=== PATIENT | female | born 1945 | race Caucasian/White ===

== ENCOUNTER 2016-06-28 09:40 | Emergency (ER) | payer OTHER ==
[2016-06-28 09:55] VITALS: BP 153/86
--- NOTE | 2016-06-28 10:41 | DR.GENAD ---
HPI - PCP Primary Care Physician: NAIN RIVAS - Complaint/Symptoms Chief Complaint Doctors Comments: Patient admits to flu like symptoms for three days; headache, myalgia, stomach pain vomiting and diarrhea. She admits to cough non productive Chief Complaint:: SOB - Source History Provided: Patient - Mode of Arrival Mode of Arrival: Ambulatory - Timing Onset of Chief Complaint: 06/28/16 PMH - PMH Past Medical History: Yes Past Medical History: Hypertension Past Medical History Comment: RA,PULMONARY EMBOLISM, Past Surgical History: Yes Surgical History: Ortho Surgery - Family History History of Family Medical Conditions: Yes Family Medical History: Cancer Family Medical History Comment: CVA - Social History Does patient currently use any type of tobacco product: Yes Have you used tobacco products in the last 12 months: Yes Type of Tobacco Use: Cigarettes How many years tobacco product used: 30 Does any household member use tobacco: Yes Alcohol Use: None Do you use any recreational Drugs:: No Lives With: Spouse Lives Where: Home - infectious screening In the last 2 months have you had wt loss of >10#?: NO Have you had fever, night sweats or hemotysis?: No Have you traveled outside the country in the last 6 months?: No Isolation: Standard ROS - Review of Systems Constitutional: No Symptoms Reported Eyes: No Symptoms Reported ENTM: No Symptoms Reported Respiratoy: No Symptoms Reported Cardiovascular: No Symptoms Reported Gastrointestinal/Abdominal: No Symptoms Reported, Abdominal Pain, Nausea Genitourinary: No Symptoms Reported Neurological: Headache Musculoskeletal: Muscle Pain Integumentary: No Symptoms Reported Hematologic/Lymphatic: No Symptoms Reported Endocrine: No Symptoms Reported Psychiatric: No Symptoms Reported All Other Systems: Reviewed and Negative PE - Vital Signs Vitals: Temperature 98.0 F Pulse Rate 102 Respiratory Rate 18 Blood Pressure 153/86 O2 Sat by Pulse Oximetry 96 - General Limitations: No Limitations General Appearance: Alert, In No Apparent Distress - Head Head Exam: Normal Inspection, Atraumatic - Eyes Eye exam: Normal Appearance, PERRL, EOMI - ENT ENT Exam: Normal Exam External Ear Exam: Normal External Inspection TM/Canal Exam: Bilateral Normal Nose Exam: Normal Nose Exam Mouth Exam: Normal Inspection Throat Exam: Normal Inspection - Neck Neck Exam: Normal Inspection - Chest Chest Inspection: Normal Inspection - Respiratory Respiratory Exam: Normal Lung Sounds Bilat Respiratory Exam: Bilateral Clear to Auscultation - Cardiovascular Cardiovascular Exam: Regular Rate, Normal Rhythm - Abdominal Exam Abdominal Exam: Normal Inspection Abdominal Tenderness: negative: RUQ, RLQ, LUQ, LLQ, Epigastrium, Suprapubic, Diffuse, Mild, Moderate, Severe, Other - Extremities Extremities Exam: Normal Inspection, Full ROM - Back Back Exam: Normal Inspection - Neurologic Neurological Exam: Alert, Oriented X3, CN II-XII Intact - Psychiatric Psychiatric Exam: Normal Affect - Skin Skin Exam: Warm, Dry, Intact Course - Reevaluation 1st: Improved ROR - Labs Reviewed Result Diagrams: 06/28/16 11:02 06/28/16 11:02 Laboratory: WBC 7.7 X10^3/uL (3.6-10.0) 06/28/16 11:02 RBC 3.89 X10^6/uL (3.5-5.4) 06/28/16 11:02 Hgb 12.9 g/dL (12.0-16.0) 06/28/16 11:02 Hct 38.1 % (36.0-47.0) 06/28/16 11:02 MCV 98.0 fL (80.0-100.0) 06/28/16 11:02 MCH 33.1 pg (27.0-34.0) 06/28/16 11:02 MCHC 33.8 g/dL (33.0-35.0) 06/28/16 11:02 RDW 17.7 % (11.6-16.5) H 06/28/16 11:02 Plt Count 140 X10^3/uL (150.0-450.0) L 06/28/16 11:02 MPV 9.6 fL (7.4-11.0) 06/28/16 11:02 Neut % 82.4 % (42.0-75.0) H 06/28/16 11:02 Lymph % 11.7 % (21.0-51.0) L 06/28/16 11:02 [place] % 4.6 % (0.0-13.0) 06/28/16 11:02 Eos % 0.1 % (0.9-2.9) L 06/28/16 11:02 Baso % 1.2 % (0.2-1.0) H 06/28/16 11:02 Neut # 6.3 x10^3/uL (2.2-4.8) H 06/28/16 11:02 Lymph # 0.9 X10^3/uL (1.3-2.9) L 06/28/16 11:02 [place] # 0.4 x10^3/uL (0.3-0.8) 06/28/16 11:02 Eos # 0.0 x10^3/uL (0.0-0.2) 06/28/16 11:02 Baso # 0.1 X10^3/uL (0.0-0.1) 06/28/16 11:02 Absolute Nucleated RBC 0.1 /100WBC 06/28/16 11:02 Sodium 139 mmol/L (136-145) 06/28/16 11:02 Corrected Sodium TNP 06/28/16 11:02 Potassium 3.2 mmol/L (3.5-5.1) L 06/28/16 11:02 Chloride 104 mmol/L (98-107) 06/28/16 11:02 Carbon Dioxide 25.2 mmol/L (21-32) 06/28/16 11:02 BUN 11 mg/dL (7-18) 06/28/16 11:02 Creatinine 0.85 mg/dL (0.55-1.02) 06/28/16 11:02 Est GFR (MDRD) Af Amer > 60 (>60) 06/28/16 11:02 Est GFR (MDRD) Non-Af > 60 (>60) 06/28/16 11:02 Glucose 106 mg/dL (65-99) H 06/28/16 11:02 Calcium 8.5 mg/dL (8.5-10.1) 06/28/16 11:02 Corrected Calcium 9.5 mg/dL (8.5-10.1) 06/28/16 11:02 Total Bilirubin 0.90 mg/dL (0.2-1.0) 06/28/16 11:02 AST 20 Units/L (15-37) 06/28/16 11:02 ALT 19 Units/L (12-78) 06/28/16 11:02 Alkaline Phosphatase 87 Units/L (46-116) 06/28/16 11:02 Total Protein 6.6 g/dL (6.4-8.2) 06/28/16 11:02 Albumin 2.7 g/dL (3.4-5.0) L 06/28/16 11:02 Globulin 3.9 g/dL (2.5-4.5) 06/28/16 11:02 Albumin/Globulin Ratio 0.7 Ratio (1.1-2.1) L 06/28/16 11:02 Influenza A (H1N1) PCR Not detected (NOT DETECT) 06/28/16 10:41 Influenza Type A (PCR) Negative (NEGATIVE) 06/28/16 10:41 Influenza Type B (PCR) Negative (NEGATIVE) 06/28/16 10:41 - XRAY XRAY Interpreted by: Radiologist (Chest: negative) - Diagnosis Discharge Problem: Influenza-like symptoms - Discharge Plan Condition: Stable - Follow ups/Referrals Follow ups/Referrals: Nain Rivas [Primary Care Provider] - 3 days - Instructions
[2016-06-28] MEDS ORDERED: NS 1000 ML 1,000 ML ONE (10:42)
[2016-06-28] MEDS ORDERED: NS 1000 ML 1,000 ML IV SCH (11:00)
[2016-06-28] MEDS ORDERED: DUONEB 0.5 MG/3 MG NEB ONE (11:03)
[2016-06-28] MEDS ORDERED: DUONEB 0.5 MG/3 MG ONE (11:05)
[2016-06-28 11:18] LABS: BASOPHILS # (AUTO) 0.1 X10^3/uL (0.0-0.1); BASOPHILS % (AUTO) 1.2 % (0.2-1.0); EOSINOPHILS % (AUTO) 0.1 % (0.9-2.9); HEMATOCRIT 38.1 % (36.0-47.0); HEMOGLOBIN 12.9 g/dL (12.0-16.0); LYMPHOCYTES # (AUTO) 0.9 X10^3/uL (1.3-2.9); LYMPHOCYTES % (AUTO) 11.7 % (21.0-51.0); MEAN CORPUSCULAR HEMOGLOBIN 33.1 pg (27.0-34.0); MEAN CORPUSCULAR HGB CONC 33.8 g/dL (33.0-35.0); MEAN PLATELET VOLUME 9.6 fL (7.4-11.0); MONOCYTES # (AUTO) 0.4 x10^3/uL (0.3-0.8); MONOCYTES % (AUTO) 4.6 % (0.0-13.0); NEUTROPHILS # (AUTO) 6.3 x10^3/uL (2.2-4.8); NEUTROPHILS % (AUTO) 82.4 % (42.0-75.0); PLATELET COUNT 140 X10^3/uL (150.0-450.0); RED BLOOD COUNT 3.89 X10^6/uL (3.5-5.4); RED CELL DISTRIBUTION WIDTH 17.7 % (11.6-16.5); WHITE BLOOD COUNT 7.7 X10^3/uL (3.6-10.0)
[2016-06-28 11:29] LABS: ALANINE AMINOTRANSFERASE 19 Units/L (12-78); ALBUMIN 2.7 g/dL (3.4-5.0); ALKALINE PHOSPHATASE 87 Units/L (46-116); ASPARTATE AMINO TRANSFERASE 20 Units/L (15-37); BLOOD UREA NITROGEN 11 mg/dL (7-18); CALCIUM 8.5 mg/dL (8.5-10.1); CARBON DIOXIDE 25.2 mmol/L (21-32); CHLORIDE 104 mmol/L (98-107); COR CA(FOR HYPOALB) 9.5 mg/dL (8.5-10.1); CREATININE 0.85 mg/dL (0.55-1.02); GLUCOSE 106 mg/dL (65-99); SODIUM 139 mmol/L (136-145); TOTAL PROTEIN 6.6 g/dL (6.4-8.2); eGFR BLACK RACES > 60 (>60); eGFR NON BLACK RACES > 60 (>60)
--- NOTE | 2016-06-28 11:58 | RAD ---
HISTORY: Cough, shortness of breath Study: Chest one view Comparison: None Findings: The trachea is midline. The cardiac silhouette is unremarkable. The lungs are clear without focal infiltrate or effusion. The bony thorax is unremarkable. IMPRESSION: 1. No acute cardiopulmonary disease. Reported By:
== END 2016-06-28 12:45 | disposition home or self-care (01) ==
LOC: ER 10:15
DX: J11.1 Influenza due to unidentified influenza virus with other respiratory manifestations (principal)
CPT/HCPCS: 36415; 71010; 80053; 85025; 87502; 87503; 94640; 96365; 99283; A4222; J7620

== ENCOUNTER 2016-07-07 14:56 | Emergency (ER) | payer OTHER ==
[2016-07-07 15:02] VITALS: BP 144/74; BMI 19.9
--- NOTE | 2016-07-07 15:31 | DR.GENAD ---
HPI - PCP Primary Care Physician: DR. RIVAS - Complaint/Symptoms Chief Complaint:: RIGHT SIDE OF HER THROAT HURTS. SHE FELL YESTERDAY AND SHE IS HAVING RIGHT SIDED BACK/SIDE PAIN. SHE HAS A SKIN TEAR TO HER RIGHT UPPER ARM AND LEFT LOWER ARM. - Source History Provided: Patient - Mode of Arrival Mode of Arrival: Ambulatory - Timing Onset of Chief Complaint: 07/06/16 PMH - PMH Past Medical History: Yes Past Medical History: Hypertension Past Surgical History: Yes Surgical History: Ortho Surgery - Family History History of Family Medical Conditions: Yes Family Medical History: Cancer - Social History Does patient currently use any type of tobacco product: Yes Have you used tobacco products in the last 12 months: Yes Type of Tobacco Use: Cigarettes Does any household member use tobacco: No Alcohol Use: None Do you use any recreational Drugs:: No Lives With: Family Lives Where: Home - infectious screening In the last 2 months have you had wt loss of >10#?: NO Have you had fever, night sweats or hemotysis?: No Have you traveled outside the country in the last 6 months?: No Isolation: Standard ROS - Review of Systems Constitutional: No Symptoms Reported Eyes: No Symptoms Reported ENTM: No Symptoms Reported Respiratoy: No Symptoms Reported Cardiovascular: No Symptoms Reported Gastrointestinal/Abdominal: No Symptoms Reported Genitourinary: No Symptoms Reported Neurological: No Symptoms Reported Musculoskeletal: Rib(s) (injury) Integumentary: No Symptoms Reported Hematologic/Lymphatic: No Symptoms Reported Endocrine: No Symptoms Reported Psychiatric: No Symptoms Reported All Other Systems: Reviewed and Negative PE - Vital Signs Vitals: Temperature 97.9 F Pulse Rate 77 Respiratory Rate 20 Blood Pressure 144/74 O2 Sat by Pulse Oximetry 100 - General Limitations: No Limitations General Appearance: Alert - Head Head Exam: Normal Inspection, Atraumatic - Eyes Eye exam: Normal Appearance, PERRL, EOMI - ENT ENT Exam: Normal Exam External Ear Exam: Normal External Inspection TM/Canal Exam: Bilateral Normal Nose Exam: Normal Nose Exam Mouth Exam: Normal Inspection Throat Exam: Normal Inspection - Neck Neck Exam: Normal Inspection - Chest Chest Inspection: Normal Inspection - Respiratory Respiratory Exam: Normal Lung Sounds Bilat Respiratory Exam: Bilateral Clear to Auscultation - Cardiovascular Cardiovascular Exam: Regular Rate - Abdominal Exam Abdominal Exam: Normal Inspection Abdominal Tenderness: negative: RUQ, RLQ, LUQ, LLQ, Epigastrium, Suprapubic, Diffuse, Mild, Moderate, Severe, Other - Extremities Extremities Exam: Normal Inspection, Full ROM, Other (Chest wall w/o fracture,) - Back Back Exam: Normal Inspection - Neurologic Neurological Exam: Alert, Oriented X3, CN II-XII Intact - Psychiatric Psychiatric Exam: Normal Affect - Skin Skin Exam: Warm, Dry, Intact ROR - Labs Reviewed Result Diagrams: 07/07/16 15:45 Laboratory: WBC 8.2 X10^3/uL (3.6-10.0) 07/07/16 15:45 RBC 3.69 X10^6/uL (3.5-5.4) 07/07/16 15:45 Hgb 12.4 g/dL (12.0-16.0) 07/07/16 15:45 Hct 36.3 % (36.0-47.0) 07/07/16 15:45 MCV 98.2 fL (80.0-100.0) 07/07/16 15:45 MCH 33.5 pg (27.0-34.0) 07/07/16 15:45 MCHC 34.1 g/dL (33.0-35.0) 07/07/16 15:45 RDW 17.1 % (11.6-16.5) H 07/07/16 15:45 Plt Count 243 X10^3/uL (150.0-450.0) 07/07/16 15:45 MPV 9.1 fL (7.4-11.0) 07/07/16 15:45 Neut % 74.7 % (42.0-75.0) 07/07/16 15:45 Lymph % 16.1 % (21.0-51.0) L 07/07/16 15:45 [place] % 7.7 % (0.0-13.0) 07/07/16 15:45 Eos % 0.2 % (0.9-2.9) L 07/07/16 15:45 Baso % 1.3 % (0.2-1.0) H 07/07/16 15:45 Neut # 6.1 x10^3/uL (2.2-4.8) H 07/07/16 15:45 Lymph # 1.3 X10^3/uL (1.3-2.9) 07/07/16 15:45 [place] # 0.6 x10^3/uL (0.3-0.8) 07/07/16 15:45 Eos # 0.0 x10^3/uL (0.0-0.2) 07/07/16 15:45 Baso # 0.1 X10^3/uL (0.0-0.1) 07/07/16 15:45 Absolute Nucleated RBC 0.0 /100WBC 07/07/16 15:45 Streptococcus Screen Negative (NEGATIVE) 07/07/16 16:21 - XRAY XRAY Interpreted by: Radiologist (No rib fractures) - Diagnosis Discharge Problem: Contusion of right chest wall Qualifiers: Encounter type: initial encounter Qualified Code(s): S20.211A - Contusion of right front wall of thorax, initial encounter - Discharge Plan Condition: Stable - Follow ups/Referrals Follow ups/Referrals: Nain Rivas [Primary Care Provider] - 3 days - Instructions
[2016-07-07] MEDS ORDERED: DEMEROL INJ IM ONE (15:33)
[2016-07-07] MEDS ORDERED: DEMEROL INJ ONE (15:36)
[2016-07-07 15:54] LABS: BASOPHILS # (AUTO) 0.1 X10^3/uL (0.0-0.1); BASOPHILS % (AUTO) 1.3 % (0.2-1.0); EOSINOPHILS % (AUTO) 0.2 % (0.9-2.9); HEMATOCRIT 36.3 % (36.0-47.0); HEMOGLOBIN 12.4 g/dL (12.0-16.0); LYMPHOCYTES # (AUTO) 1.3 X10^3/uL (1.3-2.9); LYMPHOCYTES % (AUTO) 16.1 % (21.0-51.0); MEAN CORPUSCULAR HEMOGLOBIN 33.5 pg (27.0-34.0); MEAN CORPUSCULAR HGB CONC 34.1 g/dL (33.0-35.0); MEAN CORPUSCULAR VOLUME 98.2 fL (80.0-100.0); MEAN PLATELET VOLUME 9.1 fL (7.4-11.0); MONOCYTES # (AUTO) 0.6 x10^3/uL (0.3-0.8); MONOCYTES % (AUTO) 7.7 % (0.0-13.0); NEUTROPHILS # (AUTO) 6.1 x10^3/uL (2.2-4.8); NEUTROPHILS % (AUTO) 74.7 % (42.0-75.0); PLATELET COUNT 243 X10^3/uL (150.0-450.0); RED BLOOD COUNT 3.69 X10^6/uL (3.5-5.4); RED CELL DISTRIBUTION WIDTH 17.1 % (11.6-16.5); WHITE BLOOD COUNT 8.2 X10^3/uL (3.6-10.0)
--- NOTE | 2016-07-07 16:39 | RAD ---
Right-sided rib series with single view chest Indication: Right-sided chest pain after recent fall. Comparison: Chest x-ray 06/28/2016 Findings: The cardiac and mediastinal contours are normal. The lungs are clear, without focal infilt rates, large effusion, or pneumothorax. No cortical disruption or malalignment of the ribs identifie d. Impression: No acute chest process or displaced rib fracture identified. Reported By:
== END 2016-07-07 17:06 | disposition home or self-care (01) ==
LOC: ER 15:04
DX: S20.211A Contusion of right front wall of thorax, initial encounter (principal); W19.XXXA Unspecified fall, initial encounter; Y92.9 Unspecified place or not applicable
CPT/HCPCS: 36415; 71111; 85025; 87070; 87880; 96372; 99282; 99283; J2175

== ENCOUNTER → 2016-07-23 | Outpatient (CLI) | payer OTHER ==
[2016-07-07 15:02] VITALS: BP 144/74
--- NOTE | 2016-07-23 15:09 | MRI ---
HISTORY: Low back pain, history of fall Study: MRI lumbar spine without contrast Comparison: None Technique: Multiplanar multi-sequence MRI of the lumbar spine was obtained. Sagittal T1, sagittal T 2, and stir weighted images, axial T1, and axial T2 images were obtained. Findings: The patient is status post L5-S1 posterior fusion with hardware and a disc spacer present. The lumba r spine demonstrates normal alignment with the expected signal characteristics of the bone marrow. The conus of the cord terminates normally. T12 -- L1: No evidence for compressive disc disease. The neural foramina are patent. The joints are normal. L1 -- L2: No evidence for compressive disc disease. The neural foramina are patent. The joints are n ormal. L2 -- L3: No evidence for compressive disc disease. The neural foramina are patent. The joints are n ormal. L3 -- L4: No evidence for compressive disc disease. The neural foramina are patent. The joints are n ormal. L4 -- L5: No evidence for compressive disc disease. The neural foramina are patent. The joints are n ormal. L5 -- S1: Status post fusion with hardware present. There is a disc spacer present. The neural mellissa jayjay are patent. The joints are normal. Incidental note is made of arachnoid cysts at the S2 and S3 level. IMPRESSION: Postsurgical changes as above No evidence for compressive disc disease or compressive spondylitic change at any level. Reported By:
--- NOTE | 2016-07-23 15:14 | MRI ---
HISTORY: Thoracic back pain, history of fall Study: MRI thoracic spine without contrast Comparison: None Technique: Multi planar multi sequence non contrast imaging Findings: The prevertebral soft tissues are normal. The vertebral body alignment and bone signal is normal. No compression fractures are identified. The intervertebral discs are well hydrated and normal. The ara ints are normal. The thoracic spinal cord is normal in size and configuration and without foci of ab normal signal or syrinx. IMPRESSION: No significant abnormality identified Reported By:
== END ==
LOC: RAD 09:37
PROVIDERS: ATTEND Internal Medicine
DX: M54.5 Low back pain (principal); M54.6 Pain in thoracic spine; Z98.1 Arthrodesis status
CPT/HCPCS: 72146; 72148

== ENCOUNTER 2016-10-01 16:23 | Emergency (ER) | payer OTHER ==
[2016-10-01 16:27] VITALS: BMI 19.3
[2016-10-01] MEDS ORDERED: TORADOL 30 MG VIAL IM ONE (16:40)
--- NOTE | 2016-10-01 16:41 | DR.GENAD ---
HPI - PCP Primary Care Physician: mahamed - Complaint/Symptoms Chief Complaint Doctors Comments: History as stated. Pain 8/10, sharp, movement makes worse Chief Complaint:: patient was reaching up today when she heard a loud pop in her left should. pt has limited rom - Source History Provided: Patient - Mode of Arrival Mode of Arrival: Ambulatory - Timing Onset of Chief Complaint: 10/01/16 PMH - PMH Past Medical History: Yes Past Medical History: Hypertension Past Surgical History: Yes Surgical History: Ortho Surgery - Family History History of Family Medical Conditions: Yes Family Medical History: Cancer - Social History Does patient currently use any type of tobacco product: Yes Have you used tobacco products in the last 12 months: Yes Type of Tobacco Use: Cigarettes How many years tobacco product used: 30 Does any household member use tobacco: No Alcohol Use: None Do you use any recreational Drugs:: No Lives With: Family Lives Where: Home - infectious screening In the last 2 months have you had wt loss of >10#?: NO Have you had fever, night sweats or hemotysis?: No Have you traveled outside the country in the last 6 months?: No Isolation: Standard ROS - Review of Systems Eyes: No Symptoms Reported ENTM: No Symptoms Reported Respiratoy: No Symptoms Reported Cardiovascular: No Symptoms Reported Gastrointestinal/Abdominal: No Symptoms Reported Genitourinary: No Symptoms Reported Neurological: No Symptoms Reported Musculoskeletal: Shoulder (left) Integumentary: No Symptoms Reported Hematologic/Lymphatic: No Symptoms Reported Endocrine: No Symptoms Reported Psychiatric: No Symptoms Reported All Other Systems: Reviewed and Negative PE - Vital Signs Vitals: Temperature 98.6 F Pulse Rate [Right Brachial] 81 Pulse Rate 85 Respiratory Rate 16 Blood Pressure [Right Arm] 177/83 Blood Pressure 193/88 O2 Sat by Pulse Oximetry 99 - General Limitations: No Limitations General Appearance: Alert, In No Apparent Distress - Head Head Exam: Normal Inspection, Atraumatic - Eyes Eye exam: Normal Appearance, PERRL, EOMI - ENT ENT Exam: Normal Exam External Ear Exam: Normal External Inspection TM/Canal Exam: Bilateral Normal Nose Exam: Normal Nose Exam Mouth Exam: Normal Inspection Throat Exam: Normal Inspection - Neck Neck Exam: Normal Inspection - Chest Chest Inspection: Normal Inspection - Respiratory Respiratory Exam: Normal Lung Sounds Bilat Respiratory Exam: Bilateral Clear to Auscultation - Cardiovascular Cardiovascular Exam: Regular Rate, Normal Rhythm - Abdominal Exam Abdominal Exam: Normal Inspection Abdominal Tenderness: negative: RUQ, RLQ, LUQ, LLQ, Epigastrium, Suprapubic, Diffuse, Mild, Moderate, Severe, Other - Extremities Extremities Exam: Normal Inspection, Full ROM - Back Back Exam: Normal Inspection, Full ROM - Neurologic Neurological Exam: Alert, Oriented X3, CN II-XII Intact - Psychiatric Psychiatric Exam: Normal Affect, Normal Mood - Skin Skin Exam: Warm, Dry, Intact Course - Reevaluation 1st: Improved ROR - XRAY XRAY Interpreted by: Radiologist (There are mild osteophytes abut the glenohumeral joint inferiorly. No fracture is demonstrated. The distal clavicle and AC joint are unremarkable. Impression: Mild glenohumeral osteoarthritis) - Diagnosis Discharge Problem: Osteoarthritis of left glenohumeral joint - Discharge Plan Condition: Stable - Follow ups/Referrals Follow ups/Referrals: Nain Love [Primary Care Provider] - 3 days - Instructions
[2016-10-01] MEDS ORDERED: TORADOL 30 MG VIAL ONE (16:43)
[2016-10-01] MEDS ORDERED: CATAPRES TAB 0.1 MG ONE (16:48)
[2016-10-01] MEDS ORDERED: CATAPRES TAB 0.1 MG PO ONE (16:48)
[2016-10-01 17:03] VITALS: BP 177/83
--- NOTE | 2016-10-01 17:22 | RAD ---
History: Left shoulder pain Study: Three views of the left shoulder Comparison: None Findings: There are mild osteophytes about the glenohumeral joint inferiorly. No fracture is demonst rated. The distal clavicle and AC joint are unremarkable. Impression: Mild glenohumeral osteoarthritis Reported By:
== END 2016-10-01 17:33 | disposition home or self-care (01) ==
LOC: ER 16:31
DX: M19.012 Primary osteoarthritis, left shoulder (principal)
CPT/HCPCS: 73030; 96372; 99282; J1885

== ENCOUNTER 2016-12-31 19:55 | Emergency (ER) | payer OTHER ==
[2016-12-31] MEDS ORDERED: DEMEROL INJ ONE ×2 (20:36→23:39)
[2016-12-31] MEDS ORDERED: DEMEROL INJ IVP ONE ×2 (20:38→23:32)
[2016-12-31] MEDS ORDERED: TORADOL 30 MG VIAL IVP ONE (22:00)
[2016-12-31] MEDS ORDERED: NS IRRIGATION 1000 ML 1,000 ML ONE (22:00)
[2016-12-31] MEDS ORDERED: TORADOL 30 MG VIAL ONE (22:02)
[2016-12-31] MEDS ORDERED: XYLOCAINE 1 % (PLAIN) ONE (22:08)
--- NOTE | 2016-12-31 23:10 | DR.GENAD ---
HPI - PCP Primary Care Physician: mahamed - Complaint/Symptoms Chief Complaint Doctors Comments: laceration to rt. leg Chief Complaint:: c/o assisting her and sustained an abrasion to right calf area. Takes warfarin at home. - Nurses notes reviewed Nurses Notes Review: Yes - Source History Provided: Patient - Mode of Arrival Mode of Arrival: Wheelchair - Timing Onset of Chief Complaint: 12/31/16 Came on: Suddenly - Modifying Factors Worsens:: nothing Improves:: nothing - Associated Signs and Symptoms Associated Signs and Symptoms: none PMH - PMH Past Medical History: Yes Past Medical History: Hypertension Past Medical History Comment: DVT, PE Past Surgical History: Yes Surgical History: Ortho Surgery Past Surgical History Comment: IVC filter - Family History History of Family Medical Conditions: Yes Family Medical History: Cancer - Social History Type of Tobacco Use: Cigarettes Alcohol Use: None Do you use any recreational Drugs:: No Lives With: Family Lives Where: Home - infectious screening In the last 2 months have you had wt loss of >10#?: NO Have you had fever, night sweats or hemotysis?: No Have you traveled outside the country in the last 6 months?: No Isolation: Standard ROS - Review of Systems Constitutional: No Symptoms Reported, See HPI Eyes: No Symptoms Reported ENTM: No Symptoms Reported Respiratoy: No Symptoms Reported Cardiovascular: No Symptoms Reported Gastrointestinal/Abdominal: No Symptoms Reported Genitourinary: No Symptoms Reported Neurological: No Symptoms Reported Musculoskeletal: No Symptoms Reported Integumentary: See HPI, Other (laceration to right leg) Hematologic/Lymphatic: No Symptoms Reported Endocrine: No Symptoms Reported Psychiatric: No Symptoms Reported All Other Systems: Reviewed and Negative PE - Vital Signs Vitals: Temperature 97.6 F Pulse Rate 97 Respiratory Rate 24 Blood Pressure [] 177/83 Blood Pressure 192/98 O2 Sat by Pulse Oximetry 118 - General Limitations: No Limitations General Appearance: Alert, In No Apparent Distress - Head Head Exam: Normal Inspection - Eyes Eye exam: Normal Appearance, PERRL, EOMI - ENT ENT Exam: Normal Exam External Ear Exam: Normal External Inspection TM/Canal Exam: Bilateral Normal Nose Exam: Normal Nose Exam Mouth Exam: Normal Inspection Throat Exam: Normal Inspection - Neck Neck Exam: Normal Inspection - Chest Chest Inspection: Normal Inspection - Respiratory Respiratory Exam: Normal Lung Sounds Bilat Respiratory Exam: Bilateral Clear to Auscultation - Cardiovascular Cardiovascular Exam: Regular Rate, Normal Rhythm - Abdominal Exam Abdominal Exam: Normal Inspection, Normal Bowel Sounds, Soft - Extremities Extremities Exam: Normal Inspection - Neurologic Neurological Exam: Alert, Oriented X3 - Psychiatric Psychiatric Exam: Normal Affect, Normal Mood - Skin Skin Exam: Other (bruises and ecchymoses to distal legs. A large U shaped laceration to mid rt/ leg distally on posterior aspect. The laceration's redundant skin is folded on itself. ) Course - Reevaluation 1st: Improved - Education/Counseling Education/Counseling: Patient, Family Educated On: Treatment, Diagnosis ROR - Labs Reviewed Laboratory: INR Target Range - 12/31/16 20:44 INR 2.84 (0.8-1.3) H 12/31/16 20:44 Procedures - Laceration/Wound Repair Right Lower Medial Leg Wound's Depth, Shape: Superficial, Flap Wound Explored: no foreign body removed Irrigated w/ Saline (ccs): 15 Betadine Prep?: Yes Anesthesia: 1% Lidocaine Volume Anesthetic (ccs): 15 Wound Repaired With: sutures Suture Size/Type: 3:0 Number of Sutures: 14 Layer Closure?: No Sterile Dressing Applied?: Yes Splint Applied?: No - Diagnosis Discharge Problem: Laceration, Anticoagulation adequate with anticoagulant therapy - Discharge Plan Disposition: 01 HOME, SELF-CARE Condition: Stable - Follow ups/Referrals Follow ups/Referrals: Nain Love [Primary Care Provider] - 3 days - Instructions Instructions: Skin Tear Care, [id number]
[2016-12-31] MEDS ORDERED: BACITRACIN ZINC ONE ×2 (23:16→23:20)
[2016-12-31] MEDS ORDERED: ROCEPHIN VIAL 1 GM 1 GM in NS 50 ML IV + SPIKE MINIBAG* 50 ML IV ONE (23:34)
[2016-12-31] MEDS ORDERED: ROCEPHIN 1 GM IV PREMIX 1 GM/50 ML IV.SOLN. IV ONE (23:39)
[2017-01-01 01:00] VITALS: BP 178/87
== END 2017-01-01 00:37 | disposition home or self-care (01) ==
LOC: ER 19:55
PROC: 0YQH0ZZ Repair Right Lower Leg, Open Approach (ICD-10-PCS; principal; 2016-12-31)
DX: S81.811A Laceration without foreign body, right lower leg, initial encounter (principal); Z79.01 Long term (current) use of anticoagulants; W45.8XXA Other foreign body or object entering through skin, initial encounter; Y92.9 Unspecified place or not applicable
CPT/HCPCS: 12001; 36415; 85610; 96365; 96374; 96375; 99283; A4222; J0696; J1885; J2001; J2175

== ENCOUNTER 2017-01-01 16:11 | Emergency (ER) | payer OTHER ==
[2017-01-01 16:25] VITALS: BP 158/83
[2017-01-01] MEDS ORDERED: XYLOCAINE 2 % (PLAIN) ONE (17:09)
[2017-01-01] MEDS ORDERED: ZOFRAN INJ 4 MG VIAL ONE (17:28)
[2017-01-01] MEDS ORDERED: DEMEROL INJ ONE (17:29)
[2017-01-01] MEDS ORDERED: DEMEROL INJ IVP ONE (17:34)
[2017-01-01] MEDS ORDERED: ZOFRAN INJ 4 MG VIAL IVP ONE (17:34)
--- NOTE | 2017-01-01 17:34 | DR.GENAD ---
HPI - PCP Primary Care Physician: Ivan - HPI Comment HPI Comment: HISTORY BELOW. - Complaint/Symptoms Chief Complaint Doctors Comments: BLEEDING FROM WOUND ON RLF. PATIENT ON COUMADIN. SUSTAIN CUT LAST NIGHT.SUTURED BUT SKIN TEAR COULD BE SUTURED.WOUND BLEEDING. Chief Complaint:: "I came up here last night because I hurt my leg. He stitched it up and everything but today I have gotten a big hematoma on it. A home health nurse came by and told me that I needed to get it looked at." - Nurses notes reviewed Nurses Notes Review: Yes - Source History Provided: Patient - Mode of Arrival Mode of Arrival: Wheelchair - Timing Onset of Chief Complaint: 12/31/16 Came on: Suddenly - Duration Duration: Constant Duration: Days - Severity Severity: Moderate PMH - PMH Past Medical History: Yes Past Medical History: Hypertension Past Surgical History: Yes Surgical History: Cholecystectomy, Hysterectomy, Ortho Surgery, Tonsillectomy Past Surgical History Comment: Neck, back - Family History History of Family Medical Conditions: Yes Family Medical History: Cancer - Social History Does patient currently use any type of tobacco product: Yes Have you used tobacco products in the last 12 months: Yes Type of Tobacco Use: Cigarettes Does any household member use tobacco: Yes Alcohol Use: None Do you use any recreational Drugs:: No Lives With: Family Lives Where: Home - infectious screening In the last 2 months have you had wt loss of >10#?: NO Have you had fever, night sweats or hemotysis?: No Have you traveled outside the country in the last 6 months?: No Isolation: Standard ROS - Review of Systems Constitutional: No Symptoms Reported Eyes: No Symptoms Reported ENTM: No Symptoms Reported Respiratoy: No Symptoms Reported Cardiovascular: No Symptoms Reported Gastrointestinal/Abdominal: No Symptoms Reported Genitourinary: No Symptoms Reported Neurological: No Symptoms Reported Musculoskeletal: Right, Leg Integumentary: Wound (WOUND RLE BLEEDING EVEN AT SUTURE SITE.) Hematologic/Lymphatic: Easy Bleeding, Easy Bruising Endocrine: No Symptoms Reported All Other Systems: Reviewed and Negative PE - Vital Signs Vitals: Temperature 98.6 F Pulse Rate 101 Respiratory Rate 18 Blood Pressure [Right Arm] 178/87 Blood Pressure 158/83 O2 Sat by Pulse Oximetry 96 - General Limitations: No Limitations General Appearance: In No Apparent Distress - Head Head Exam: Normal Inspection - ENT ENT Exam: Normal External Ear Exam External Ear Exam: Normal External Inspection TM/Canal Exam: Bilateral Normal Nose Exam: Normal Nose Exam Mouth Exam: Normal Inspection Throat Exam: Normal Inspection - Neck Neck Exam: Normal Inspection - Chest Chest Inspection: Symmetric Chest Wall Rise - Respiratory Respiratory Exam: Normal Lung Sounds Bilat Respiratory Exam: Bilateral Rhonchi, Lower Rhonchi - Cardiovascular Cardiovascular Exam: Irregular Rhythm - Abdominal Exam Abdominal Exam: Normal Bowel Sounds, Soft. negative: Tenderness - Extremities Extremities Exam: Tenderness (RT LEG WOUND, SKIN TEARS BLEEDING.) - Back Back Exam: Normal Inspection - Neurologic Neurological Exam: Alert, Oriented X3 - Psychiatric Psychiatric Exam: Normal Affect, Normal Mood - Skin Skin Exam: Erythema (WOUND BLEEDING ON RIGHT LEG) [facility] - Additional Information Additional Information Obtained From: Family - Differential Diagnosis Differential Diagnosis: HEMATOMA BLEEDING RT LEG. Course - Treatment Treatment: SEE ORDERS. - Education/Counseling Education/Counseling: Patient, Education Educated On: Treatment, Diagnosis, Needs for Follow Up ROR - Labs Reviewed Laboratory Results Reviewed?: Yes Result Diagrams: 01/01/17 17:20 01/01/17 17:20 Laboratory: WBC 10.1 X10^3/uL (3.6-10.0) H 01/01/17 17:20 RBC 4.02 X10^6/uL (3.5-5.4) 01/01/17 17:20 Hgb 13.6 g/dL (12.0-16.0) 01/01/17 17:20 Hct 40.1 % (36.0-47.0) 01/01/17 17:20 MCV 99.7 fL (80.0-100.0) 01/01/17 17:20 MCH 33.8 pg (27.0-34.0) 01/01/17 17:20 MCHC 33.9 g/dL (33.0-35.0) 01/01/17 17:20 RDW 15.3 % (11.6-16.5) 01/01/17 17:20 Plt Count 210 X10^3/uL (150.0-450.0) 01/01/17 17:20 MPV 9.5 fL (7.4-11.0) 01/01/17 17:20 Neut % 76.1 % (42.0-75.0) H 01/01/17 17:20 Lymph % 14.8 % (21.0-51.0) L 01/01/17 17:20 [place] % 6.7 % (0.0-13.0) 01/01/17 17:20 Eos % 0.5 % (0.9-2.9) L 01/01/17 17:20 Baso % 1.9 % (0.2-1.0) H 01/01/17 17:20 Neut # 7.7 x10^3/uL (2.2-4.8) H 01/01/17 17:20 Lymph # 1.5 X10^3/uL (1.3-2.9) 01/01/17 17:20 [place] # 0.7 x10^3/uL (0.3-0.8) 01/01/17 17:20 Eos # 0.1 x10^3/uL (0.0-0.2) 01/01/17 17:20 Baso # 0.2 X10^3/uL (0.0-0.1) H 01/01/17 17:20 Absolute Nucleated RBC 0.1 /100WBC 01/01/17 17:20 INR Target Range - 01/01/17 17:20 INR 3.17 (0.8-1.3) H 01/01/17 17:20 PTT 34.5 SECONDS (22.9-36.5) 01/01/17 17:20 PTT Comment - 01/01/17 17:20 Sodium 144 mmol/L (136-145) 01/01/17 17:20 Corrected Sodium 145 mmol/L (136-145) 01/01/17 17:20 Potassium 4.0 mmol/L (3.5-5.1) 01/01/17 17:20 Chloride 106 mmol/L (98-107) 01/01/17 17:20 Carbon Dioxide 30.9 mmol/L (21-32) 01/01/17 17:20 BUN 18 mg/dL (7-18) 01/01/17 17:20 Creatinine 1.15 mg/dL (0.55-1.02) H 01/01/17 17:20 Est GFR (MDRD) Af Amer > 60 (>60) 01/01/17 17:20 Est GFR (MDRD) Non-Af 50 (>60) L 01/01/17 17:20 Glucose 140 mg/dL (65-99) H 01/01/17 17:20 Calcium 9.3 mg/dL (8.5-10.1) 01/01/17 17:20 Corrected Calcium 10.1 mg/dL (8.5-10.1) 01/01/17 17:20 Total Bilirubin 0.60 mg/dL (0.2-1.0) 01/01/17 17:20 AST 14 Units/L (15-37) L 01/01/17 17:20 ALT 12 Units/L (12-78) 01/01/17 17:20 Alkaline Phosphatase 99 Units/L (46-116) 01/01/17 17:20 Total Protein 7.1 g/dL (6.4-8.2) 01/01/17 17:20 Albumin 3.0 g/dL (3.4-5.0) L 01/01/17 17:20 Globulin 4.1 g/dL (2.5-4.5) 01/01/17 17:20 Albumin/Globulin Ratio 0.7 Ratio (1.1-2.1) L 01/01/17 17:20 - Diagnosis Discharge Problem: Hematoma of right lower extremity, Hemorrhage, Laceration, Skin tear - Discharge Plan Disposition: 01 HOME, SELF-CARE Condition: Stable Prescriptions: Acetaminophen with Codeine [Tylenol/Codeine #3 300-30 mg] 1 tab PO Q4-6H PRN # 10 tab PRN Reason: Pain Sulfamethoxazole-Trimethoprim [BACTRIM DS TAB 800/160 MG *] 1 tab PO BID #20 tab - Follow ups/Referrals Follow ups/Referrals: Nain Love [Primary Care Provider] - 3 days - Instructions Instructions: Laceration Care, Adult, [id number], Hematoma Additional Instructions: RETURN TO ED IF WORSE.
[2017-01-01 17:36] LABS: BASOPHILS # (AUTO) 0.2 X10^3/uL (0.0-0.1); BASOPHILS % (AUTO) 1.9 % (0.2-1.0); EOSINOPHILS # (AUTO) 0.1 x10^3/uL (0.0-0.2); EOSINOPHILS % (AUTO) 0.5 % (0.9-2.9); HEMATOCRIT 40.1 % (36.0-47.0); HEMOGLOBIN 13.6 g/dL (12.0-16.0); LYMPHOCYTES # (AUTO) 1.5 X10^3/uL (1.3-2.9); LYMPHOCYTES % (AUTO) 14.8 % (21.0-51.0); MEAN CORPUSCULAR HEMOGLOBIN 33.8 pg (27.0-34.0); MEAN CORPUSCULAR HGB CONC 33.9 g/dL (33.0-35.0); MEAN CORPUSCULAR VOLUME 99.7 fL (80.0-100.0); MEAN PLATELET VOLUME 9.5 fL (7.4-11.0); MONOCYTES # (AUTO) 0.7 x10^3/uL (0.3-0.8); MONOCYTES % (AUTO) 6.7 % (0.0-13.0); NEUTROPHILS # (AUTO) 7.7 x10^3/uL (2.2-4.8); NEUTROPHILS % (AUTO) 76.1 % (42.0-75.0); PLATELET COUNT 210 X10^3/uL (150.0-450.0); RED BLOOD COUNT 4.02 X10^6/uL (3.5-5.4); RED CELL DISTRIBUTION WIDTH 15.3 % (11.6-16.5); WHITE BLOOD COUNT 10.1 X10^3/uL (3.6-10.0)
[2017-01-01 17:48] LABS: ALANINE AMINOTRANSFERASE 12 Units/L (12-78); ALKALINE PHOSPHATASE 99 Units/L (46-116); ASPARTATE AMINO TRANSFERASE 14 Units/L (15-37); BLOOD UREA NITROGEN 18 mg/dL (7-18); CALCIUM 9.3 mg/dL (8.5-10.1); CARBON DIOXIDE 30.9 mmol/L (21-32); CHLORIDE 106 mmol/L (98-107); COR CA(FOR HYPOALB) 10.1 mg/dL (8.5-10.1); COR NA(FOR HYPERGLY) 145 mmol/L (136-145); CREATININE 1.15 mg/dL (0.55-1.02); SODIUM 144 mmol/L (136-145); TOTAL PROTEIN 7.1 g/dL (6.4-8.2); eGFR BLACK RACES > 60 (>60); eGFR NON BLACK RACES 50 (>60)
[2017-01-01] MEDS ORDERED: AQUA-MEPHYTON ADULT INJ SC ONE (18:36)
[2017-01-01] MEDS ORDERED: AQUA-MEPHYTON ADULT INJ ONE (18:56)
[2017-01-01] MEDS ORDERED: XYLOCAINE 1 % (PLAIN) ONE (20:22)
[2017-01-01] MEDS ORDERED: BACTRIM DS TAB PO ONE ×2 (21:21→21:25)
[2017-01-01] MEDS ORDERED: ADACEL TDaP IM ONE (21:33)
== END 2017-01-01 21:55 | disposition home or self-care (01) ==
LOC: ER 16:31
PROC: 0YQH0ZZ Repair Right Lower Leg, Open Approach (ICD-10-PCS; principal; 2017-01-01)
DX: S80.11XA Contusion of right lower leg, initial encounter (principal); S83.289A Other tear of lateral meniscus, current injury, unspecified knee, initial encounter; S81.811A Laceration without foreign body, right lower leg, initial encounter; R58 Hemorrhage, not elsewhere classified; W45.8XXA Other foreign body or object entering through skin, initial encounter; Y92.9 Unspecified place or not applicable
CPT/HCPCS: 12001; 36415; 80053; 85025; 85610; 85730; 90471; 96365; 96372; 96374; 96375; 99283; A4222; J2001; J2175; J2405; J3430

== ENCOUNTER 2017-01-03 14:48 | Inpatient (IN) | payer OTHER ==
[2017-01-03] MEDS: DEMEROL INJ IVP PRN (16:43)
[2017-01-03] MEDS: PHENERGAN INJ 25 MG IV PRN (16:43)
[2017-01-03] MEDS: NS 1000 ML 1,000 ML IV SCH (16:50)
[2017-01-03 17:06] LABS: BASOPHILS # (AUTO) 0.1 X10^3/uL (0.0-0.1); BASOPHILS % (AUTO) 0.7 % (0.2-1.0); EOSINOPHILS % (AUTO) 0.2 % (0.9-2.9); HEMATOCRIT 35.1 % (36.0-47.0); LYMPHOCYTES # (AUTO) 1.4 X10^3/uL (1.3-2.9); LYMPHOCYTES % (AUTO) 13.1 % (21.0-51.0); MEAN CORPUSCULAR HGB CONC 34.2 g/dL (33.0-35.0); MEAN CORPUSCULAR VOLUME 99.5 fL (80.0-100.0); MEAN PLATELET VOLUME 9.5 fL (7.4-11.0); MONOCYTES # (AUTO) 1.1 x10^3/uL (0.3-0.8); MONOCYTES % (AUTO) 9.9 % (0.0-13.0); NEUTROPHILS # (AUTO) 8.2 x10^3/uL (2.2-4.8); NEUTROPHILS % (AUTO) 76.1 % (42.0-75.0); PLATELET COUNT 211 X10^3/uL (150.0-450.0); RED BLOOD COUNT 3.53 X10^6/uL (3.5-5.4); RED CELL DISTRIBUTION WIDTH 15.3 % (11.6-16.5); WHITE BLOOD COUNT 10.8 X10^3/uL (3.6-10.0)
[2017-01-03 17:26] LABS: ALANINE AMINOTRANSFERASE 11 Units/L (12-78); ALBUMIN 3.1 g/dL (3.4-5.0); ALKALINE PHOSPHATASE 101 Units/L (46-116); ASPARTATE AMINO TRANSFERASE 12 Units/L (15-37); BLOOD UREA NITROGEN 12 mg/dL (7-18); CALCIUM 9.5 mg/dL (8.5-10.1); CARBON DIOXIDE 29.8 mmol/L (21-32); CHLORIDE 102 mmol/L (98-107); COR CA(FOR HYPOALB) 10.2 mg/dL (8.5-10.1); CREATININE 0.94 mg/dL (0.55-1.02); SODIUM 141 mmol/L (136-145); TOTAL PROTEIN 7.3 g/dL (6.4-8.2); eGFR BLACK RACES > 60 (>60); eGFR NON BLACK RACES > 60 (>60)
--- NOTE | 2017-01-03 18:48 | RAD ---
History fall and left lower leg pain Study: AP and lateral left tibia and fibula Comparison: None Findings: There is no fracture or dislocation or periosteal reaction. There is faint arterial vascula r calcification. The ankle and knee joints are generally unremarkable. Impression: No acute disease Reported By:
[2017-01-03] MEDS ORDERED: PREVNAR 13 IM ONE (18:50)
[2017-01-03] MEDS ORDERED: FLUVIRIN IM ONE (18:50)
--- NOTE | 2017-01-03 18:53 | RAD ---
Right ankle, three views Indication: Ankle pain after fall Findings: There is focal soft tissue thickening of the distal medial lower leg. No acute cortical dis ruption or malalignment of the right ankle identified. There are enthesopathic changes of the calcane us. Generalized osteopenia. Impression: No acute skeletal injury of the right ankle. Soft tissue thickening of the medial distal lower leg, o f indeterminate chronicity, but possibly representing hematoma. Correlation recommended. Reported By:
[2017-01-03] MEDS ORDERED: VANCOMYCIN HCL 500 MG VIAL 250 MG, VANCOMYCIN HCL 1 GM VIAL 1 GM in D5W 250 ML IV 250 ML IV SCH (21:00)
[2017-01-03] MEDS: NICOTINE PATCH TD SCH (21:26)
[2017-01-03] MEDS: MILK OF MAGNESIA PO SCH (21:26)
[2017-01-03] MEDS: COLACE CAP 100 MG PO SCH (21:26)
[2017-01-03] MEDS ORDERED: D5W 250 ML IV 250 ML IV ONE (21:50)
[2017-01-03] MEDS ORDERED: VANCOMYCIN HCL 1 GM VIAL ONE (21:50)
[2017-01-03] MEDS ORDERED: VANCOMYCIN HCL 500 MG VIAL ONE (21:50)
[2017-01-04 02:43] LABS: BILIRUBIN,URINE NEGATIVE (NEGATIVE); BLOOD/HEMOGLOBIN,URINE NEGATIVE (NEGATIVE); GLUCOSE, URINE NEGATIVE (NEGATIVE); KETONES,URINE NEGATIVE (NEGATIVE); LEUKOCYTE ESTERASE ,URINE NEGATIVE (NEGATIVE); NITRITES,URINE NEGATIVE (NEGATIVE); PROTEIN,URINE NEGATIVE (NEGATIVE); UROBILINOGEN,URINE NORMAL (NORMAL)
[2017-01-04 02:47] LABS: APPEARANCE,URINE CLEAR (CLEAR); BACTERIA,URINE NEGATIVE /HPF (NEGATIVE); COLOR,URINE YELLOW (YELLOW); RBC,URINE NONE SEEN /HPF (NEGATIVE); SQUAMOUS EPITHELIAL CELL,UR RARE /HPF (NEGATIVE)
[2017-01-04] MEDS: COLACE CAP 100 MG PO SCH ×2 (03:23→20:47)
[2017-01-04] MEDS: MILK OF MAGNESIA PO SCH ×3 (03:23→20:47)
[2017-01-04 05:25] LABS: ALANINE AMINOTRANSFERASE 7 Units/L (12-78); ALBUMIN 2.2 g/dL (3.4-5.0); ALKALINE PHOSPHATASE 78 Units/L (46-116); ASPARTATE AMINO TRANSFERASE 12 Units/L (15-37); BASOPHILS # (AUTO) 0.1 X10^3/uL (0.0-0.1); BASOPHILS % (AUTO) 0.6 % (0.2-1.0); BLOOD UREA NITROGEN 10 mg/dL (7-18); CALCIUM 8.3 mg/dL (8.5-10.1); CARBON DIOXIDE 29.8 mmol/L (21-32); CHLORIDE 105 mmol/L (98-107); COR CA(FOR HYPOALB) 9.7 mg/dL (8.5-10.1); COR NA(FOR HYPERGLY) 141 mmol/L (136-145); EOSINOPHILS % (AUTO) 0.3 % (0.9-2.9); HEMATOCRIT 28.1 % (36.0-47.0); HEMOGLOBIN 9.7 g/dL (12.0-16.0); LYMPHOCYTES # (AUTO) 1.5 X10^3/uL (1.3-2.9); LYMPHOCYTES % (AUTO) 13.3 % (21.0-51.0); MEAN CORPUSCULAR HEMOGLOBIN 34.1 pg (27.0-34.0); MEAN CORPUSCULAR HGB CONC 34.5 g/dL (33.0-35.0); MEAN CORPUSCULAR VOLUME 98.7 fL (80.0-100.0); MEAN PLATELET VOLUME 9.8 fL (7.4-11.0); MONOCYTES # (AUTO) 1.2 x10^3/uL (0.3-0.8); MONOCYTES % (AUTO) 11.1 % (0.0-13.0); NEUTROPHILS # (AUTO) 8.2 x10^3/uL (2.2-4.8); NEUTROPHILS % (AUTO) 74.7 % (42.0-75.0); PLATELET COUNT 187 X10^3/uL (150.0-450.0); RED BLOOD COUNT 2.85 X10^6/uL (3.5-5.4); RED CELL DISTRIBUTION WIDTH 15.2 % (11.6-16.5); SODIUM 140 mmol/L (136-145); TOTAL PROTEIN 5.6 g/dL (6.4-8.2); eGFR BLACK RACES > 60 (>60); eGFR NON BLACK RACES > 60 (>60)
[2017-01-04] MEDS ORDERED: MAG-OX TAB PO PRN (05:43)
[2017-01-04] MEDS ORDERED: MAGNESIUM SULFATE 1 GM/100 mL PREMIX 1 GM/100 ML BAG IV PRN (05:43)
[2017-01-04] MEDS ORDERED: K-LYTE EFFERVESCENT PO PRN (05:43)
[2017-01-04] MEDS ORDERED: K-RIDER 10 MEQ/NS 100 ML 10 MEQ/100 ML BAG IV PRN (05:43)
[2017-01-04] MEDS: DEMEROL INJ IVP PRN ×3 (08:22→20:43)
[2017-01-04] MEDS: PHENERGAN INJ 25 MG IV PRN ×2 (08:22→14:04)
[2017-01-04] MEDS: NICOTINE PATCH TD SCH (09:25)
--- NOTE | 2017-01-04 16:40 | DR.UPDATE ---
H&P Update History and Physical Update: WAS SEEN IN THE OFFICE ON 01/03/2017. A H&P WAS COMPLETED PRIOR TO ADMISSION. PATIENT HAS BEEN SEEN AND EXAMINED WITH NO CHANGES NOTED TO H&P. Changes noted: NO Yes with the following:
[2017-01-04] MEDS ORDERED: MOBIC TAB 15 MG PO ONE (17:51)
[2017-01-04] MEDS ORDERED: PREVNAR 13 IM ONE (17:52)
[2017-01-04] MEDS ORDERED: FLUVIRIN IM ONE (17:52)
[2017-01-04] MEDS: LOPRESSOR TAB 25 MG PO SCH ×2 (17:59→20:47)
[2017-01-04] MEDS: NexIUM PO SCH (17:59)
[2017-01-04] MEDS: ZANTAC PO SCH (20:47)
[2017-01-04] MEDS: VANCOMYCIN 1 GM PREMIX (ADDVANTAGE) 250 ML IV SCH (20:48)
[2017-01-04] MEDS: ZANAFLEX PO SCH (20:48)
[2017-01-04] MEDS: XALATAN EACHEYE SCH (20:48)
[2017-01-04] MEDS ORDERED: COUMADIN TAB 4 MG PO SCH (21:00)
[2017-01-04] MEDS: NS 1000 ML 1,000 ML IV SCH (22:29)
[2017-01-04] MEDS: ALPHAGAN 0.2% OPHTH SOLN EACHEYE SCH (22:30)
[2017-01-05 05:51] LABS: BASOPHILS # (AUTO) 0.1 X10^3/uL (0.0-0.1); BASOPHILS % (AUTO) 0.9 % (0.2-1.0); EOSINOPHILS % (AUTO) 0.4 % (0.9-2.9); HEMATOCRIT 27.6 % (36.0-47.0); HEMOGLOBIN 9.5 g/dL (12.0-16.0); LYMPHOCYTES # (AUTO) 1.3 X10^3/uL (1.3-2.9); LYMPHOCYTES % (AUTO) 12.8 % (21.0-51.0); MEAN CORPUSCULAR HEMOGLOBIN 34.6 pg (27.0-34.0); MEAN CORPUSCULAR HGB CONC 34.5 g/dL (33.0-35.0); MEAN CORPUSCULAR VOLUME 100.2 fL (80.0-100.0); MEAN PLATELET VOLUME 9.8 fL (7.4-11.0); MONOCYTES # (AUTO) 1.2 x10^3/uL (0.3-0.8); MONOCYTES % (AUTO) 11.8 % (0.0-13.0); NEUTROPHILS # (AUTO) 7.4 x10^3/uL (2.2-4.8); NEUTROPHILS % (AUTO) 74.1 % (42.0-75.0); PLATELET COUNT 199 X10^3/uL (150.0-450.0); RED BLOOD COUNT 2.76 X10^6/uL (3.5-5.4); RED CELL DISTRIBUTION WIDTH 15.2 % (11.6-16.5)
[2017-01-05 06:21] LABS: ALANINE AMINOTRANSFERASE 9 Units/L (12-78); ALKALINE PHOSPHATASE 75 Units/L (46-116); ASPARTATE AMINO TRANSFERASE 15 Units/L (15-37); BLOOD UREA NITROGEN 9 mg/dL (7-18); CALCIUM 8.1 mg/dL (8.5-10.1); CARBON DIOXIDE 27.4 mmol/L (21-32); CHLORIDE 107 mmol/L (98-107); COR CA(FOR HYPOALB) 9.7 mg/dL (8.5-10.1); COR NA(FOR HYPERGLY) 140 mmol/L (136-145); SODIUM 140 mmol/L (136-145); TOTAL PROTEIN 5.3 g/dL (6.4-8.2); eGFR BLACK RACES > 60 (>60); eGFR NON BLACK RACES > 60 (>60)
[2017-01-05] MEDS ORDERED: MOBIC TAB 15 MG PO SCH (09:00)
[2017-01-05] MEDS: ZINC SULFATE PO SCH (10:03)
[2017-01-05] MEDS: TAB-A-VITE PO SCH (10:03)
[2017-01-05] MEDS: ZANAFLEX PO SCH ×2 (10:03→21:03)
[2017-01-05] MEDS: NexIUM PO SCH (10:04)
[2017-01-05] MEDS: LOPRESSOR TAB 25 MG PO SCH ×2 (10:04→21:03)
[2017-01-05] MEDS: ZANTAC PO SCH ×2 (10:04→21:03)
[2017-01-05] MEDS: MILK OF MAGNESIA PO SCH ×2 (10:04→21:03)
[2017-01-05] MEDS: PHENERGAN INJ 25 MG IV PRN (10:05)
[2017-01-05] MEDS: DEMEROL INJ IVP PRN (10:05)
[2017-01-05] MEDS: NS 1000 ML 1,000 ML IV SCH ×3 (10:07→23:56)
[2017-01-05] MEDS: ALPHAGAN 0.2% OPHTH SOLN EACHEYE SCH ×2 (11:53→21:04)
[2017-01-05] MEDS: NICOTINE PATCH TD SCH (11:55)
[2017-01-05] MEDS ORDERED: NS 1000 ML 1,000 ML ONE (13:46)
[2017-01-05] MEDS ORDERED: MARCAINE 0.25% INJ ONE (14:27)
[2017-01-05] MEDS ORDERED: XYLOCAINE 1 % (PLAIN) ONE (14:27)
[2017-01-05] MEDS ORDERED: NS IRRIGATION 1000 ML 1,000 ML IR ONE (15:13)
--- NOTE | 2017-01-05 15:40 | OR.GENERIC ---
Post-Op Note Generic - Post-Op Note Operative Report: Operative Report Date of Operation: January 05, 2017 Pre-Operative Diagnosis: Right lower extremity traumatic avulsion wound with hematoma. Post-Operative Diagnosis: Right lower extremity traumatic avulsion wound with hematoma and necrotic skin / subcutaneous tissue (6 x 4.5 x 1.5 cm). Procedure: Drainage of right lower extremity hematoma with excisional debridement of right lower extremity avulsion wound (skin and subcutaneous tissue). Surgeon: Yfn Leblanc MD. Hook Up Driver: Suzie Victoria CRNA. Anesthesia: Monitored anesthesia care and local. Specimen: None. Estimated blood loss: Minimal. Complications: None. Summary: The patient is a 71 year old female who presented with a right lower extremity traumatic avulsion injury. The patient is on anticoagulation secondary to history of deep vein thrombosis. Superior to the hematoma, a portion of the skin avulsion was repaired in the emergency room. The patient was offered drainage of hematoma and excisional debridement. The risk and benefits of the procedure including difficulty with anesthesia, bleeding, infection, scar formation, and delayed healing were discussed with the patient. The patient understood these risks and requested the procedure. On January 05, 2017, the patient was brought to the operative theatre. A time out was performed verifying the patient and the procedure. After satisfactory induction of monitored anesthesia care, the right lower extremity was prepped with Chloraprep and draped in the usual fashion. Local was infiltrated around the hematoma. The skin was incised sharply with a scalpel and the hematoma evacuated. Inspection revealed necrotic skin and subcutaneous tissue. The necrotic tissue was debrided with a scalpel. The wound bed was scrubbed with a Hibiclens impregnated brush. Bleeding was controlled using electrocautery. The wound bed measured 6 x 4.5 x 1.5 cm. Inspection of the wound closure superior to this is concerning for skin necrosis. The decision was made not to disrupt until talking to the patient and family. A dressing was placed. The patient was awakened and taken to the recovery room in stable condition. There were no complications. All counts were correct.
--- NOTE | 2017-01-05 15:48 | DR.CONSULT ---
Consult - Consultation for Day of: Date: 01/04/17 - Chief Complaint Chief Complaint: Right lower extremity wound - Allergies Allergies/Adverse Reactions: Allergies Allergy/AdvReac Type Severity Reaction Status Date / Time hydromorphone [From Dilaudid] Allergy Verified 12/31/16 20:37 morphine Allergy Verified 12/31/16 19:57 penicillin G Allergy Verified 12/31/16 20:37 - History of Present Illness History of Present Illness: The patient is a 71 year old female who suffered a right lower extremity avulsion injury. The patient was seen in the ER and majority of the avulsion closed with sutures. The paitent is on anticoagulation due to a history of DVT. She is s/p inferior vena cava filter placement. She was placed on antibiotics but the inferior portion of the wound worsened. A hematoma enlarged. (-) drainage. XR's of the LE do not demonstrate a fracture. (+) tobacco use. The patient was placed in the hospital and surgery consulted. - Past Medical History Past Medical History: Anxiety, GERD, Hypertension Additional Medical History: h/o DVT - Past Surgical History Surgical History: Cholecystectomy, Hysterectomy, Ortho Surgery, Tonsillectomy, Other (IVC filter) - Family History Family Medical History: [place], Coronary Artery Disease, Hypertension - Social History Does patient currently use any type of tobacco product: Yes Have you used tobacco products in the last 12 months: Yes Type of Tobacco Use: Cigarettes How many years tobacco product used: 55 Does any household member use tobacco: No Alcohol Use: None Drug Use: None - Medications Home Medications: Alprazolam [Xanax] 0.25 mg PO BID PRN 01/04/17 [History Confirmed 01/04/17] Brimonidine Tartrate [Alphagan 0.2% Ophth Soln] 1 drop EACHEYE BID 01/04/17 [ History Confirmed 01/04/17] Esomeprazole Magnesium [Nexium] 40 mg PO DAILY 01/04/17 [History Confirmed 01/04] Latanoprost 0.005 % (Ophth) [XALATAN (OPHTH) DROPS 0.005 % *] 1 drop EACHEYE HS 01/04/17 [History Confirmed 01/04/17] Meloxicam 7.5 mg PO DAILY 01/04/17 [History Confirmed 01/04/17] Metoprolol Tartrate 25 mg PO BID 01/04/17 [History Confirmed 01/04/17] Oxycodone HCl/Acetaminophen [Oxycodone-Acetaminophen 10-325] 1 tab PO QID PRN [History Confirmed 01/04/17] Ranitidine HCl [Ranitidine [address]] 150 mg PO BID 01/04/17 [History Confirmed 01/04/17] Tizanidine HCl 4 mg PO BID 01/04/17 [History Confirmed 01/04/17] Warfarin Sodium 4 mg PO DAILY 01/04/17 [History Confirmed 01/04/17] - Review of Systems Constitutional: No Symptoms Reported Eyes: No Symptoms Reported ENT: No Symptoms Reported Respiratory: No Symptoms Reported Cardiovascular: No Symptoms Reported Gastrointestinal: No Symptoms Reported Genitourinary: No Symptoms Reported Musculoskeletal: Back Pain, Leg Pain Skin: Bruising, Wound, Ecchymosis - Physical Exam Vital Signs: Temperature 98.6 F Pulse Rate [Right Brachial] 85 Pulse Rate [Left Brachial] 106 Respiratory Rate 20 Blood Pressure [Right Arm] 143/81 Blood Pressure 158/83 O2 Sat by Pulse Oximetry 96 Oriented: Normal Eyes: Normal Ear: Normal Nose: Normal Respiratory: Diminished Throughout Cardiovascular: Normal Auscultation: Bowel Sounds: Normal Palpation: Normal Tenderness: Normal Skin: Wound (Large hematoma right medial LE >6 cm. Mild erythema. TTP. Superior to hematoma extensive ecchymoses with sutures in place. (+) edema. poor capillary refill.), Bruising (LE's.), Ecchymosis (At laceration repair.) Musculoskeletal: Normal Psychiatric: Anxiety Mood Description: Calm, Anxious Affect: Normal Speech Pattern: Clear, Appropriate - Plan Plan: 71 year old female on anticoagulation with right lower extremity hematoma / wound. Extensive edema. Hematoma needs evacuation. May require debridment. Also concern for laceration repair. Skin edges intact but appears to be developing necrosis. May also require debridement. Due to h/o anticoagulation , recommend performing in OR with cautery available. Risk / benefits d/w patient. All questions answered.
[2017-01-05] MEDS: PERCOCET TAB 5/325 MG PO PRN ×2 (16:43→23:54)
[2017-01-05] MEDS: COUMADIN TAB 5 MG PO SCH (21:02)
[2017-01-05] MEDS: VANCOMYCIN 1 GM PREMIX (ADDVANTAGE) 250 ML IV SCH (21:03)
[2017-01-05] MEDS: COLACE CAP 100 MG PO SCH (21:03)
[2017-01-05] MEDS: XALATAN EACHEYE SCH (21:04)
--- NOTE | 2017-01-05 21:13 | PCM.PROG ---
Progress Note - Progress Note for Day of Date: 01/04/17 - Subjective Subjective: WAS ADMITTED FOR A WOUND/HEMATOMA TO THE RIGHT LOWER LEG. PATIENT WAS SEEN IN THE ER TWICE OVER THE WEEKEND. THE MAJORITY OF THE WOUND WAS SUTURED IN THE ER. TODAY, PATIENT IS ALERT AND ORIENTED, LYING IN BED ON MORNING ROUNDS. SHE CONTINUES WITH COMPLAINTS OF RIGHT LEG PAIN. ON EXAMINATION , LUNGS ARE CLEAR TO AUSCULTATION. ABDOMEN IS ROUND, SOFT, AND NON-TENDER WITH NORMAL BOWEL SOUNDS NOTED IN ALL QUADRANTS. RIGHT LOWER LEG IS NOTED WITH A KERLIX DRESSING. DRESSING REMOVED TO ASSESS WOUND. RIGHT LEG NOTED WITH AN AVULSION WOUND/HEMATOMA. AVULSION PARTIALLY SUTURED. WE WILL OBTAIN A WOUND CULTURE AND GRAM STAIN. HER VITAL SIGNS THIS MORNING ARE 98.9-106-18-96%-178/ 84. ABNORMAL LAB VALUES INCLUDE THE FOLLOWING: RBC 11.0, RBC 2.85, HGB 9.7, HCT 28.1, INR 1.11, POTASSIUM 3.4, GLUCOSE 135, CALCIUM 8.3, AST 12, ALT 7, TOTAL PROTEIN 5.6, ALBUMIN 2.2, A/G RATIO 0.6. TODAY, WE PLAN TO CONSULT WITH FOR POSSIBLE DEBRIDEMENT OF WOUND. OTHERWISE WE WILL CONTINUE TO TREAT WITH ANTIBIOTICS AND CONTINUE WITH CURRENT PLAN OF CARE. WE PLAN TO FOLLOW UP WITH AM LABS AND CONTINUE TO MONITOR PATIENT. - Past Medical Family Social History Past Med/Fam/Surg Hx: No changes since H&P Allergies: Allergies hydromorphone [From Dilaudid] Allergy (Verified 12/31/16 20:37) morphine Allergy (Verified 12/31/16 19:57) penicillin G Allergy (Verified 12/31/16 20:37) - Review of Systems ROS: No change since H&P - Vital Signs and I&O's Vital Signs: Temperature 98.4 F Pulse Rate [Right Brachial] 85 Pulse Rate [Left Brachial] 76 Respiratory Rate 18 Blood Pressure [Left Arm] 170/68 Blood Pressure [Right Arm] 176/69 Blood Pressure 158/83 O2 Sat by Pulse Oximetry 98 Intake and Output: Intake & Output 01/03/17 01/04/17 01/05/17 01/06/17 11:59 11:59 11:59 11:59 Intake Total 500 2337 240 Output Total 350 200 400 Balance 150 2137 -160 - Physical Exam Oriented: Normal Eyes: Normal Ear: Normal Nose: Normal Respiratory: Normal Cardiovascular: Normal : Normal Auscultation: Bowel Sounds: Normal Palpation: Normal Tenderness: Normal Skin: Wound (Large hematoma right medial LE >6 cm. Mild erythema. TTP. Superior to hematoma extensive ecchymoses with sutures in place. (+) edema. poor capillary refill.), Bruising (LE's.), Ecchymosis (At laceration repair.) Musculoskeletal: Normal Psychiatric: Anxiety Mood Description: Calm Affect: Normal Speech Pattern: Clear, Appropriate - Laboratory and Diagnostics Result Diagrams: 01/05/17 04:15 01/05/17 04:15 Labs: 01/04/17 13:54 Leg - Right Gram Stain - Final 01/04/17 13:54 Leg - Right Wound Culture - Preliminary Laboratory WBC 10.0 X10^3/uL (3.6-10.0) 01/05/17 04:15 RBC 2.76 X10^6/uL (3.5-5.4) L 01/05/17 04:15 Hgb 9.5 g/dL (12.0-16.0) L 01/05/17 04:15 Hct 27.6 % (36.0-47.0) L 01/05/17 04:15 MCV 100.2 fL (80.0-100.0) H 01/05/17 04:15 MCH 34.6 pg (27.0-34.0) H 01/05/17 04:15 MCHC 34.5 g/dL (33.0-35.0) 01/05/17 04:15 RDW 15.2 % (11.6-16.5) 01/05/17 04:15 Plt Count 199 X10^3/uL (150.0-450.0) 01/05/17 04:15 MPV 9.8 fL (7.4-11.0) 01/05/17 04:15 Neut % 74.1 % (42.0-75.0) 01/05/17 04:15 Lymph % 12.8 % (21.0-51.0) L 01/05/17 04:15 [place] % 11.8 % (0.0-13.0) 01/05/17 04:15 Eos % 0.4 % (0.9-2.9) L 01/05/17 04:15 Baso % 0.9 % (0.2-1.0) 01/05/17 04:15 Neut # 7.4 x10^3/uL (2.2-4.8) H 01/05/17 04:15 Lymph # 1.3 X10^3/uL (1.3-2.9) 01/05/17 04:15 [place] # 1.2 x10^3/uL (0.3-0.8) H 01/05/17 04:15 Eos # 0.0 x10^3/uL (0.0-0.2) 01/05/17 04:15 Baso # 0.1 X10^3/uL (0.0-0.1) 01/05/17 04:15 Absolute Nucleated RBC 0.0 /100WBC 01/05/17 04:15 INR Target Range - 01/05/17 04:15 INR 1.16 (0.8-1.3) 01/05/17 04:15 Sodium 140 mmol/L (136-145) 01/05/17 04:15 Corrected Sodium 140 mmol/L (136-145) 01/05/17 04:15 Potassium 4.0 mmol/L (3.5-5.1) 01/05/17 04:15 Chloride 107 mmol/L (98-107) 01/05/17 04:15 Carbon Dioxide 27.4 mmol/L (21-32) 01/05/17 04:15 BUN 9 mg/dL (7-18) 01/05/17 04:15 Creatinine 0.70 mg/dL (0.55-1.02) 01/05/17 04:15 Est GFR (MDRD) Af Amer > 60 (>60) 01/05/17 04:15 Est GFR (MDRD) Non-Af > 60 (>60) 01/05/17 04:15 Glucose 114 mg/dL (65-99) H 01/05/17 04:15 Calcium 8.1 mg/dL (8.5-10.1) L 01/05/17 04:15 Corrected Calcium 9.7 mg/dL (8.5-10.1) 01/05/17 04:15 Magnesium 2.0 mg/dL (1.7-2.9) 01/04/17 04:05 Total Bilirubin 0.50 mg/dL (0.2-1.0) 01/05/17 04:15 AST 15 Units/L (15-37) 01/05/17 04:15 ALT 9 Units/L (12-78) L 01/05/17 04:15 Alkaline Phosphatase 75 Units/L (46-116) 01/05/17 04:15 Total Protein 5.3 g/dL (6.4-8.2) L 01/05/17 04:15 Albumin 2.0 g/dL (3.4-5.0) L 01/05/17 04:15 Globulin 3.3 g/dL (2.5-4.5) 01/05/17 04:15 Albumin/Globulin Ratio 0.6 Ratio (1.1-2.1) L 01/05/17 04:15 Specimen Type Clean catch urine 01/04/17 02:17 Urine Color Yellow (YELLOW) 01/04/17 02:17 Urine Appearance Clear (CLEAR) 01/04/17 02:17 Urine pH 8.0 (5.0 - 8.0) 01/04/17 02:17 Ur Specific [place] 1.010 (1.000-1.030) 01/04/17 02:17 Urine Protein Negative (NEGATIVE) 01/04/17 02:17 Urine Glucose (UA) Negative (NEGATIVE) 01/04/17 02:17 Urine Ketones Negative (NEGATIVE) 01/04/17 02:17 Urine Occult Blood Negative (NEGATIVE) 01/04/17 02:17 Urine Nitrite Negative (NEGATIVE) 01/04/17 02:17 Urine Bilirubin Negative (NEGATIVE) 01/04/17 02:17 Urine Urobilinogen Normal (NORMAL) 01/04/17 02:17 Ur Leukocyte Esterase Negative (NEGATIVE) 01/04/17 02:17 Urine RBC None seen /HPF (NEGATIVE) 01/04/17 02:17 Urine WBC None seen /HPF (NEGATIVE) 01/04/17 02:17 Ur Squamous Epith Cells Rare /HPF (NEGATIVE) 01/04/17 02:17 Urine Bacteria Negative /HPF (NEGATIVE) 01/04/17 02:17 Ur Culture Indicated? No/not indicated 01/04/17 02:17 - Plan (1) Hematoma of right lower extremity Status: Acute Qualifiers: Encounter type: initial encounter Qualified Code(s): S80.11XA - Contusion of right lower leg, initial encounter Plan: CONTINUE WOUND CARE, CONTINUE VANCOMYCIN 1GM DAILY, SURGICAL CONSULT, CONTINUE TO MONITOR (2) Cellulitis Status: Acute Qualifiers: Site of cellulitis: extremity Site of cellulitis of extremity: lower extremity Laterality: right Qualified Code(s): L03.115 - Cellulitis of right lower limb Plan: CONTINUE WOUND CARE, CONTINUE VANCOMYCIN 1GM DAILY, SURGICAL CONSULT, CONTINUE TO MONITOR (3) Laceration of right lower extremity Status: Acute Qualifiers: Encounter type: subsequent encounter Qualified Code(s): S81.811D - Laceration without foreign body, right lower leg, subsequent encounter Plan: CONTINUE WOUND CARE, CONTINUE VANCOMYCIN 1GM DAILY, SURGICAL CONSULT, CONTINUE TO MONITOR
[2017-01-06 06:09] LABS: BASOPHILS # (AUTO) 0.1 X10^3/uL (0.0-0.1); BASOPHILS % (AUTO) 0.6 % (0.2-1.0); EOSINOPHILS # (AUTO) 0.1 x10^3/uL (0.0-0.2); EOSINOPHILS % (AUTO) 0.7 % (0.9-2.9); HEMATOCRIT 28.4 % (36.0-47.0); HEMOGLOBIN 9.6 g/dL (12.0-16.0); LYMPHOCYTES # (AUTO) 0.8 X10^3/uL (1.3-2.9); LYMPHOCYTES % (AUTO) 9.3 % (21.0-51.0); MEAN CORPUSCULAR HEMOGLOBIN 33.9 pg (27.0-34.0); MEAN CORPUSCULAR VOLUME 99.9 fL (80.0-100.0); MEAN PLATELET VOLUME 9.3 fL (7.4-11.0); MONOCYTES % (AUTO) 11.2 % (0.0-13.0); NEUTROPHILS # (AUTO) 6.6 x10^3/uL (2.2-4.8); NEUTROPHILS % (AUTO) 78.2 % (42.0-75.0); PLATELET COUNT 226 X10^3/uL (150.0-450.0); RED BLOOD COUNT 2.84 X10^6/uL (3.5-5.4); RED CELL DISTRIBUTION WIDTH 15.4 % (11.6-16.5); WHITE BLOOD COUNT 8.5 X10^3/uL (3.6-10.0)
[2017-01-06 06:25] LABS: ALANINE AMINOTRANSFERASE 10 Units/L (12-78); ALKALINE PHOSPHATASE 82 Units/L (46-116); ASPARTATE AMINO TRANSFERASE 12 Units/L (15-37); BLOOD UREA NITROGEN 11 mg/dL (7-18); CALCIUM 8.3 mg/dL (8.5-10.1); CARBON DIOXIDE 27.8 mmol/L (21-32); CHLORIDE 108 mmol/L (98-107); COR CA(FOR HYPOALB) 9.9 mg/dL (8.5-10.1); CREATININE 0.82 mg/dL (0.55-1.02); SODIUM 141 mmol/L (136-145); TOTAL PROTEIN 5.7 g/dL (6.4-8.2); eGFR BLACK RACES > 60 (>60); eGFR NON BLACK RACES > 60 (>60)
[2017-01-06] MEDS: PERCOCET TAB 5/325 MG PO PRN ×3 (08:23→20:16)
[2017-01-06] MEDS: MILK OF MAGNESIA PO SCH ×2 (08:23→20:16)
[2017-01-06] MEDS: LOPRESSOR TAB 25 MG PO SCH ×2 (08:24→20:16)
[2017-01-06] MEDS: NexIUM PO SCH (08:24)
[2017-01-06] MEDS: ZANTAC PO SCH ×2 (08:24→20:16)
[2017-01-06] MEDS: TAB-A-VITE PO SCH (08:24)
[2017-01-06] MEDS: ZANAFLEX PO SCH ×2 (08:24→20:16)
[2017-01-06] MEDS: ZINC SULFATE PO SCH (08:24)
[2017-01-06] MEDS: NICOTINE PATCH TD SCH (08:27)
[2017-01-06] MEDS: ALPHAGAN 0.2% OPHTH SOLN EACHEYE SCH ×2 (11:20→20:16)
[2017-01-06] MEDS ORDERED: BACTROBAN CREAM TOP ONE (13:41)
[2017-01-06] MEDS ORDERED: STERILE WATER IRRIGATION IR ONE (15:22)
[2017-01-06] MEDS: VANCOMYCIN 1 GM PREMIX (ADDVANTAGE) 250 ML IV SCH (20:15)
[2017-01-06] MEDS: COUMADIN TAB 5 MG PO SCH (20:16)
[2017-01-06] MEDS: XALATAN EACHEYE SCH (20:16)
[2017-01-06] MEDS: COLACE CAP 100 MG PO SCH (20:16)
[2017-01-07] MEDS: XANAX PO PRN ×2 (01:47→20:45)
[2017-01-07] MEDS: PERCOCET TAB 5/325 MG PO PRN (03:28)
[2017-01-07] MEDS: NS 1000 ML 1,000 ML IV SCH ×2 (04:14→17:47)
[2017-01-07 06:06] LABS: ALANINE AMINOTRANSFERASE 10 Units/L (12-78); ALBUMIN 2.1 g/dL (3.4-5.0); ALKALINE PHOSPHATASE 85 Units/L (46-116); ASPARTATE AMINO TRANSFERASE 19 Units/L (15-37); BLOOD UREA NITROGEN 8 mg/dL (7-18); CALCIUM 8.6 mg/dL (8.5-10.1); CHLORIDE 105 mmol/L (98-107); COR CA(FOR HYPOALB) 10.1 mg/dL (8.5-10.1); CREATININE 0.81 mg/dL (0.55-1.02); SODIUM 139 mmol/L (136-145); TOTAL PROTEIN 5.9 g/dL (6.4-8.2); eGFR BLACK RACES > 60 (>60); eGFR NON BLACK RACES > 60 (>60)
[2017-01-07 06:09] LABS: BASOPHILS # (AUTO) 0.1 X10^3/uL (0.0-0.1); BASOPHILS % (AUTO) 0.8 % (0.2-1.0); CARBON DIOXIDE 26.3 mmol/L (21-32); EOSINOPHILS # (AUTO) 0.1 x10^3/uL (0.0-0.2); EOSINOPHILS % (AUTO) 0.8 % (0.9-2.9); HEMATOCRIT 27.5 % (36.0-47.0); HEMOGLOBIN 9.7 g/dL (12.0-16.0); LYMPHOCYTES # (AUTO) 0.7 X10^3/uL (1.3-2.9); LYMPHOCYTES % (AUTO) 7.2 % (21.0-51.0); MEAN CORPUSCULAR HEMOGLOBIN 34.7 pg (27.0-34.0); MEAN CORPUSCULAR HGB CONC 35.2 g/dL (33.0-35.0); MEAN CORPUSCULAR VOLUME 98.6 fL (80.0-100.0); MEAN PLATELET VOLUME 9.5 fL (7.4-11.0); MONOCYTES # (AUTO) 1.1 x10^3/uL (0.3-0.8); MONOCYTES % (AUTO) 11.1 % (0.0-13.0); NEUTROPHILS # (AUTO) 8.1 x10^3/uL (2.2-4.8); NEUTROPHILS % (AUTO) 80.1 % (42.0-75.0); PLATELET COUNT 245 X10^3/uL (150.0-450.0); RED BLOOD COUNT 2.79 X10^6/uL (3.5-5.4); RED CELL DISTRIBUTION WIDTH 15.2 % (11.6-16.5); WHITE BLOOD COUNT 10.1 X10^3/uL (3.6-10.0)
--- NOTE | 2017-01-07 08:24 | PCM.PROG ---
Progress Note - Progress Note for Day of Date: 01/05/17 - Subjective Subjective: WAS ADMITTED FOR A WOUND/HEMATOMA TO THE RIGHT LOWER LEG. TODAY, PATIENT IS ALERT AND ORIENTED, LYING IN BED ON MORNING ROUNDS. SHE CONTINUES WITH COMPLAINTS OF RIGHT LEG PAIN. ON EXAMINATION, LUNGS ARE CLEAR TO AUSCULTATION. ABDOMEN IS ROUND, SOFT, AND NON-TENDER WITH NORMAL BOWEL SOUNDS NOTED IN ALL QUADRANTS. RIGHT LOWER LEG IS NOTED WITH A KERLIX DRESSING. ENLARGED HEMATOMA REMAINS. HER VITAL SIGNS THIS MORNING ARE 97.4-97-18-95%-190/ 88. ABNORMAL LAB VALUES INCLUDE THE FOLLOWING: RBC 2.76, HGB 9.5, HCT 27.6, INR 1.16, GLUCOSE 114, CALCIUM 8.1, ALT 9, TOTAL PROTEIN 5.3, ALBUMIN 2.0, A/G RATIO 0.6. A WOUND CULTURE WAS OBTAINED. PRELIMINARY RESULTS REPORT GROWTH OF COAGULASE NEGATIVE STAPH AT DAY 1. CONSULTED WITH PATIENT THIS MORNING AND PLANS TO TAKE PATIENT TO THE OR FOR DEBRIDEMENT OF WOUND. OTHERWISE WE WILL CONTINUE TO TREAT WITH ANTIBIOTICS AND CONTINUE WITH CURRENT PLAN OF CARE. WE PLAN TO FOLLOW UP WITH AM LABS AND CONTINUE TO MONITOR PATIENT. - Past Medical Family Social History Past Med/Fam/Surg Hx: No changes since H&P Allergies: Allergies hydromorphone [From Dilaudid] Allergy (Verified 12/31/16 20:37) morphine Allergy (Verified 12/31/16 19:57) penicillin G Allergy (Verified 12/31/16 20:37) - Review of Systems ROS: No change since H&P - Vital Signs and I&O's Vital Signs: Temperature 98.6 F Pulse Rate [Right Brachial] 85 Pulse Rate [Left Brachial] 100 Respiratory Rate 24 Blood Pressure [Left Arm] 183/84 Blood Pressure [Right Arm] 176/69 Blood Pressure 158/83 O2 Sat by Pulse Oximetry 96 Intake and Output: Intake & Output 01/04/17 01/05/17 01/06/17 01/07/17 11:59 11:59 11:59 11:59 Intake Total 500 2337 2536 1640 Output Total 350 200 400 700 Balance 150 2137 2136 940 - Physical Exam Oriented: Normal Eyes: Normal Ear: Normal Nose: Normal Respiratory: Normal Cardiovascular: Normal : Normal Auscultation: Bowel Sounds: Normal Palpation: Normal Tenderness: Normal Skin: Wound (Large hematoma right medial LE >6 cm. Mild erythema. TTP. Superior to hematoma extensive ecchymoses with sutures in place. (+) edema. poor capillary refill.), Bruising (LE's.), Ecchymosis (At laceration repair.) Musculoskeletal: Normal Psychiatric: Anxiety Mood Description: Calm Affect: Normal Speech Pattern: Clear - Laboratory and Diagnostics Result Diagrams: 01/09/17 04:16 01/09/17 04:16 Labs: 01/04/17 13:54 Leg - Right Gram Stain - Final 01/04/17 13:54 Leg - Right Wound Culture - Preliminary Laboratory WBC 10.1 X10^3/uL (3.6-10.0) H 01/07/17 04:23 RBC 2.79 X10^6/uL (3.5-5.4) L 01/07/17 04:23 Hgb 9.7 g/dL (12.0-16.0) L 01/07/17 04:23 Hct 27.5 % (36.0-47.0) L 01/07/17 04:23 MCV 98.6 fL (80.0-100.0) 01/07/17 04:23 MCH 34.7 pg (27.0-34.0) H 01/07/17 04:23 MCHC 35.2 g/dL (33.0-35.0) H 01/07/17 04:23 RDW 15.2 % (11.6-16.5) 01/07/17 04:23 Plt Count 245 X10^3/uL (150.0-450.0) 01/07/17 04:23 MPV 9.5 fL (7.4-11.0) 01/07/17 04:23 Neut % 80.1 % (42.0-75.0) H 01/07/17 04:23 Lymph % 7.2 % (21.0-51.0) L 01/07/17 04:23 [place] % 11.1 % (0.0-13.0) 01/07/17 04:23 Eos % 0.8 % (0.9-2.9) L 01/07/17 04:23 Baso % 0.8 % (0.2-1.0) 01/07/17 04:23 Neut # 8.1 x10^3/uL (2.2-4.8) H 01/07/17 04:23 Lymph # 0.7 X10^3/uL (1.3-2.9) L 01/07/17 04:23 [place] # 1.1 x10^3/uL (0.3-0.8) H 01/07/17 04:23 Eos # 0.1 x10^3/uL (0.0-0.2) 01/07/17 04:23 Baso # 0.1 X10^3/uL (0.0-0.1) 01/07/17 04:23 Absolute Nucleated RBC 0.0 /100WBC 01/07/17 04:23 INR Target Range - 01/07/17 04:23 INR 1.23 (0.8-1.3) 01/07/17 04:23 Sodium 139 mmol/L (136-145) 01/07/17 04:23 Corrected Sodium TNP 01/07/17 04:23 Potassium 3.7 mmol/L (3.5-5.1) 01/07/17 04:23 Chloride 105 mmol/L (98-107) 01/07/17 04:23 Carbon Dioxide 26.3 mmol/L (21-32) 01/07/17 04:23 BUN 8 mg/dL (7-18) 01/07/17 04:23 Creatinine 0.81 mg/dL (0.55-1.02) 01/07/17 04:23 Est GFR (MDRD) Af Amer > 60 (>60) 01/07/17 04:23 Est GFR (MDRD) Non-Af > 60 (>60) 01/07/17 04:23 Glucose 89 mg/dL (65-99) 01/07/17 04:23 Calcium 8.6 mg/dL (8.5-10.1) 01/07/17 04:23 Corrected Calcium 10.1 mg/dL (8.5-10.1) 01/07/17 04:23 Magnesium 2.0 mg/dL (1.7-2.9) 01/04/17 04:05 Total Bilirubin 0.70 mg/dL (0.2-1.0) 01/07/17 04:23 AST 19 Units/L (15-37) 01/07/17 04:23 ALT 10 Units/L (12-78) L 01/07/17 04:23 Alkaline Phosphatase 85 Units/L (46-116) 01/07/17 04:23 Total Protein 5.9 g/dL (6.4-8.2) L 01/07/17 04:23 Albumin 2.1 g/dL (3.4-5.0) L 01/07/17 04:23 Globulin 3.8 g/dL (2.5-4.5) 01/07/17 04:23 Albumin/Globulin Ratio 0.6 Ratio (1.1-2.1) L 01/07/17 04:23 Prealbumin 9.1 mg/dL (18-35.7) L 01/06/17 05:22 Specimen Type Clean catch urine 01/04/17 02:17 Urine Color Yellow (YELLOW) 01/04/17 02:17 Urine Appearance Clear (CLEAR) 01/04/17 02:17 Urine pH 8.0 (5.0 - 8.0) 01/04/17 02:17 Ur Specific [place] 1.010 (1.000-1.030) 01/04/17 02:17 Urine Protein Negative (NEGATIVE) 01/04/17 02:17 Urine Glucose (UA) Negative (NEGATIVE) 01/04/17 02:17 Urine Ketones Negative (NEGATIVE) 01/04/17 02:17 Urine Occult Blood Negative (NEGATIVE) 01/04/17 02:17 Urine Nitrite Negative (NEGATIVE) 01/04/17 02:17 Urine Bilirubin Negative (NEGATIVE) 01/04/17 02:17 Urine Urobilinogen Normal (NORMAL) 01/04/17 02:17 Ur Leukocyte Esterase Negative (NEGATIVE) 01/04/17 02:17 Urine RBC None seen /HPF (NEGATIVE) 01/04/17 02:17 Urine WBC None seen /HPF (NEGATIVE) 01/04/17 02:17 Ur Squamous Epith Cells Rare /HPF (NEGATIVE) 01/04/17 02:17 Urine Bacteria Negative /HPF (NEGATIVE) 01/04/17 02:17 Ur Culture Indicated? No/not indicated 01/04/17 02:17 - Plan (1) Hematoma of right lower extremity Status: Acute Qualifiers: Encounter type: initial encounter Qualified Code(s): S80.11XA - Contusion of right lower leg, initial encounter Plan: CONTINUE WOUND CARE, CONTINUE VANCOMYCIN 1GM DAILY, SURGICAL CONSULT, CONTINUE TO MONITOR (2) Cellulitis Status: Acute Qualifiers: Site of cellulitis: extremity Site of cellulitis of extremity: lower extremity Laterality: right Qualified Code(s): L03.115 - Cellulitis of right lower limb Plan: CONTINUE WOUND CARE, CONTINUE VANCOMYCIN 1GM DAILY, SURGICAL CONSULT, CONTINUE TO MONITOR (3) Laceration of right lower extremity Status: Acute Qualifiers: Encounter type: subsequent encounter Qualified Code(s): S81.811D - Laceration without foreign body, right lower leg, subsequent encounter Plan: CONTINUE WOUND CARE, CONTINUE VANCOMYCIN 1GM DAILY, SURGICAL CONSULT, CONTINUE TO MONITOR
[2017-01-07] MEDS: MILK OF MAGNESIA PO SCH ×2 (09:00→20:46)
[2017-01-07] MEDS: ZINC SULFATE PO SCH (09:01)
[2017-01-07] MEDS: PERCOCET TAB 5/325 MG PO SCH ×4 (09:01→20:45)
[2017-01-07] MEDS: NexIUM PO SCH (09:01)
[2017-01-07] MEDS: LOPRESSOR TAB 25 MG PO SCH ×2 (09:02→20:46)
[2017-01-07] MEDS: ZANAFLEX PO SCH ×2 (09:02→20:46)
[2017-01-07] MEDS: TAB-A-VITE PO SCH (09:02)
[2017-01-07] MEDS: ZANTAC PO SCH ×2 (09:02→20:45)
[2017-01-07] MEDS: NICOTINE PATCH TD SCH (09:03)
[2017-01-07] MEDS ORDERED: BACTROBAN CREAM ONE (11:08)
[2017-01-07] MEDS: ALPHAGAN 0.2% OPHTH SOLN EACHEYE SCH ×2 (12:56→21:07)
[2017-01-07] MEDS: ALBUMIN HUMAN 25%- 100ML 100 ML IV SCH ×2 (13:05→14:13)
[2017-01-07] MEDS ORDERED: XYLOCAINE 1 % (PLAIN) ONE (15:40)
--- NOTE | 2017-01-07 16:37 | RAD ---
Examination: Portable AP chest History: Line placement Findings: There is a left upper extremity PICC which extends into the brachiocephalic vein in mid-med iastinum. However, the catheter is coiled back on itself and is looped in this location. The tip of t he catheter is located near the junction of left subclavian and brachiocephalic veins. No pneumothora x or large pleural effusion is evident. Impression: Suboptimal position and configuration of left upper extremity PICC. Reported By:
--- NOTE | 2017-01-07 17:05 | RAD ---
HISTORY: PICC line placement Study: AP portable chest Comparison: 01/07/2017 at 4:37 p.m. Findings: There are findings of mild interstitial fibrosis versus minimal interstitial edema. The heart size i s normal. Evidence for previous surgery to the cervical spine is noted. No acute bony abnormalities are identified. The left-sided PICC line is again noted to be folded back on itself in the region of the distal brach iocephalic vein/superior vena cava. The tip extends back into the brachiocephalic vein. It is uncha nged when compared to the prior examination. IMPRESSION: 1. Mild prominence of lung markings suggesting interstitial fibrosis versus minimal interstitial karishma ma. 2. The PICC line is unchanged in position when compared to the prior examination. Reported By:
--- NOTE | 2017-01-07 17:36 | DR.UPDATE ---
H&P Update History and Physical Update: History and Physical reviewed and patient examined. Changes noted: NO Yes with the following:agree with H&P from Dr irby. Will perform picc line Procedures (ALL) - Central Line Placement PCM.CLCO: written consent Time out performed: Yes Patient placed pm monitor/pulse ox: Yes prep: mask, gown, gloves, other Centrial line prep: chlorhexidine scrub Local anesthsia used: lidocane 1% Ultrasound used for placement: Yes (left basillic identified) Central line lumen ininserted: double (5fr power picc. trimmed to 40 cm. inserted full 40 cm) Post procedure: good blood return, all ports aspirated, flushed,capped, sterile dressing applied Post procedure xray: other (catheter turned back on initial cxr. arm was prepped and draped in sterile fasion. catheter was withdrawn 6cm then reinserted. cxr showed same position. left arm was again prepped and draped in sterile fasion. C-arm was brought in. catheter was withdrawn 7cm to clear loop. catheter was then treaded into SVC without usage of a wire. sterile dressing was reapplied and CXR ordered.) Patient tolerated procedure: Yes Complications: none
--- NOTE | 2017-01-07 18:54 | RAD ---
Examination: Portable AP chest History: PICC line placement Comparison reference: Earlier same date Findings: The left upper extremity PICC has been manipulated and is now noted entering the right hear t. The tip of the catheter is not seen but may be within the right atrium. There is no evidence for p leural fluid, pneumothorax or other complication. Impression: Interval change in position of left upper extremity PICC. The tip of the catheter is not definitely identified. Reported By:
[2017-01-07] MEDS: PHARMACY CONSULT - DOSE _____ XX SCH (20:38)
[2017-01-07] MEDS: XALATAN EACHEYE SCH (20:39)
[2017-01-07] MEDS: COUMADIN TAB 5 MG PO SCH (20:41)
[2017-01-07] MEDS: PHENERGAN INJ 25 MG IV PRN (20:46)
[2017-01-07] MEDS: COLACE CAP 100 MG PO SCH (20:46)
[2017-01-07 21:09] LABS: CREATININE 0.83 mg/dL (0.55-1.02); VANCOMYCIN,TROUGH 7.4 ug/mL (15-20)
[2017-01-07] MEDS: VANCOMYCIN 1 GM PREMIX (ADDVANTAGE) 250 ML IV SCH (21:35)
[2017-01-08] MEDS: DEMEROL INJ IVP PRN (02:40)
[2017-01-08] MEDS: NS 1000 ML 1,000 ML IV SCH ×3 (04:30→15:20)
[2017-01-08 06:25] LABS: ALANINE AMINOTRANSFERASE 12 Units/L (12-78); ALBUMIN 3.1 g/dL (3.4-5.0); ALKALINE PHOSPHATASE 86 Units/L (46-116); ASPARTATE AMINO TRANSFERASE 17 Units/L (15-37); BLOOD UREA NITROGEN 11 mg/dL (7-18); CALCIUM 9.3 mg/dL (8.5-10.1); CARBON DIOXIDE 30.1 mmol/L (21-32); CHLORIDE 107 mmol/L (98-107); CREATININE 0.78 mg/dL (0.55-1.02); SODIUM 143 mmol/L (136-145); TOTAL PROTEIN 6.8 g/dL (6.4-8.2); eGFR BLACK RACES > 60 (>60); eGFR NON BLACK RACES > 60 (>60)
[2017-01-08 06:27] LABS: BASOPHILS # (AUTO) 0.1 X10^3/uL (0.0-0.1); BASOPHILS % (AUTO) 0.8 % (0.2-1.0); EOSINOPHILS # (AUTO) 0.1 x10^3/uL (0.0-0.2); EOSINOPHILS % (AUTO) 0.9 % (0.9-2.9); HEMATOCRIT 29.2 % (36.0-47.0); HEMOGLOBIN 9.9 g/dL (12.0-16.0); LYMPHOCYTES # (AUTO) 0.7 X10^3/uL (1.3-2.9); LYMPHOCYTES % (AUTO) 8.2 % (21.0-51.0); MEAN CORPUSCULAR HEMOGLOBIN 33.7 pg (27.0-34.0); MEAN CORPUSCULAR VOLUME 99.1 fL (80.0-100.0); MONOCYTES # (AUTO) 0.8 x10^3/uL (0.3-0.8); MONOCYTES % (AUTO) 8.5 % (0.0-13.0); NEUTROPHILS # (AUTO) 7.4 x10^3/uL (2.2-4.8); NEUTROPHILS % (AUTO) 81.6 % (42.0-75.0); PLATELET COUNT 271 X10^3/uL (150.0-450.0); RED BLOOD COUNT 2.95 X10^6/uL (3.5-5.4); RED CELL DISTRIBUTION WIDTH 15.5 % (11.6-16.5); WHITE BLOOD COUNT 9.1 X10^3/uL (3.6-10.0)
[2017-01-08] MEDS: ZANTAC PO SCH ×2 (08:50→21:03)
[2017-01-08] MEDS: TAB-A-VITE PO SCH (08:50)
[2017-01-08] MEDS: ZINC SULFATE PO SCH (08:50)
[2017-01-08] MEDS: ZANAFLEX PO SCH ×2 (08:50→21:05)
[2017-01-08] MEDS: NexIUM PO SCH (08:50)
[2017-01-08] MEDS: NICOTINE PATCH TD SCH (08:51)
[2017-01-08] MEDS: LOPRESSOR TAB 25 MG PO SCH ×2 (08:51→21:04)
[2017-01-08] MEDS: PERCOCET TAB 5/325 MG PO SCH ×4 (08:52→21:04)
[2017-01-08] MEDS: ALPHAGAN 0.2% OPHTH SOLN EACHEYE SCH ×2 (08:54→21:02)
[2017-01-08] MEDS: ALBUMIN HUMAN 25%- 100ML 100 ML IV SCH (08:54)
[2017-01-08] MEDS: MILK OF MAGNESIA PO SCH (10:54)
--- NOTE | 2017-01-08 12:12 | PCM.PROG ---
Progress Note - Progress Note for Day of Date: 01/08/17 - Subjective Subjective: Pain improved after duragesic patch started. No acute events. - Past Medical Family Social History Past Med/Fam/Surg Hx: No changes since H&P Allergies: Allergies hydromorphone [From Dilaudid] Allergy (Verified 12/31/16 20:37) morphine Allergy (Verified 12/31/16 19:57) penicillin G Allergy (Verified 12/31/16 20:37) - Review of Systems ROS: No change since H&P - Vital Signs and I&O's Vital Signs: Temperature 98.7 F Pulse Rate [Right Brachial] 88 Pulse Rate [Left Brachial] 73 Respiratory Rate 20 Blood Pressure [Left Arm] 131/78 Blood Pressure [Right Arm] 186/84 Blood Pressure 158/83 O2 Sat by Pulse Oximetry 96 Intake and Output: Intake & Output 01/06/17 01/07/17 01/08/17 01/09/17 11:59 11:59 11:59 10:59 Intake Total 2536 1640 1240 Output Total 400 700 Balance 2136 940 1240 - Physical Exam Oriented: Normal Eyes: Normal Ear: Normal Nose: Normal Respiratory: Normal Cardiovascular: Normal Skin: Wound (Large hematoma right medial LE >6 cm. Mild erythema. TTP. Superior to hematoma extensive ecchymoses with sutures in place. (+) edema. poor capillary refill.), Bruising (LE's.), Ecchymosis (At laceration repair.), Other (Right inferior wound with minimal changes. No induration or purulent drainage. Minimal granulation.) Musculoskeletal: Normal Psychiatric: Anxiety Mood Description: Calm Affect: Normal Speech Pattern: Clear, Appropriate, Slurred - Laboratory and Diagnostics Result Diagrams: 01/08/17 05:32 01/08/17 05:32 Labs: 01/04/17 13:54 Leg - Right Gram Stain - Final 01/04/17 13:54 Leg - Right Wound Culture - Final Laboratory WBC 9.1 X10^3/uL (3.6-10.0) 01/08/17 05:32 RBC 2.95 X10^6/uL (3.5-5.4) L 01/08/17 05:32 Hgb 9.9 g/dL (12.0-16.0) L 01/08/17 05:32 Hct 29.2 % (36.0-47.0) L 01/08/17 05:32 MCV 99.1 fL (80.0-100.0) 01/08/17 05:32 MCH 33.7 pg (27.0-34.0) 01/08/17 05:32 MCHC 34.0 g/dL (33.0-35.0) 01/08/17 05:32 RDW 15.5 % (11.6-16.5) 01/08/17 05:32 Plt Count 271 X10^3/uL (150.0-450.0) 01/08/17 05:32 MPV 9.0 fL (7.4-11.0) 01/08/17 05:32 Neut % 81.6 % (42.0-75.0) H 01/08/17 05:32 Lymph % 8.2 % (21.0-51.0) L 01/08/17 05:32 [place] % 8.5 % (0.0-13.0) 01/08/17 05:32 Eos % 0.9 % (0.9-2.9) 01/08/17 05:32 Baso % 0.8 % (0.2-1.0) 01/08/17 05:32 Neut # 7.4 x10^3/uL (2.2-4.8) H 01/08/17 05:32 Lymph # 0.7 X10^3/uL (1.3-2.9) L 01/08/17 05:32 [place] # 0.8 x10^3/uL (0.3-0.8) 01/08/17 05:32 Eos # 0.1 x10^3/uL (0.0-0.2) 01/08/17 05:32 Baso # 0.1 X10^3/uL (0.0-0.1) 01/08/17 05:32 Absolute Nucleated RBC 0.1 /100WBC 01/08/17 05:32 INR Target Range - 01/08/17 05:32 INR 1.32 (0.8-1.3) H 01/08/17 05:32 Sodium 143 mmol/L (136-145) 01/08/17 05:32 Corrected Sodium TNP 01/08/17 05:32 Potassium 4.3 mmol/L (3.5-5.1) 01/08/17 05:32 Chloride 107 mmol/L (98-107) 01/08/17 05:32 Carbon Dioxide 30.1 mmol/L (21-32) 01/08/17 05:32 BUN 11 mg/dL (7-18) 01/08/17 05:32 Creatinine 0.78 mg/dL (0.55-1.02) 01/08/17 05:32 Est GFR (MDRD) Af Amer > 60 (>60) 01/08/17 05:32 Est GFR (MDRD) Non-Af > 60 (>60) 01/08/17 05:32 Glucose 91 mg/dL (65-99) 01/08/17 05:32 Calcium 9.3 mg/dL (8.5-10.1) 01/08/17 05:32 Corrected Calcium 10.0 mg/dL (8.5-10.1) 01/08/17 05:32 Magnesium 3.0 mg/dL (1.7-2.9) H 01/08/17 05:32 Total Bilirubin 0.80 mg/dL (0.2-1.0) 01/08/17 05:32 AST 17 Units/L (15-37) 01/08/17 05:32 ALT 12 Units/L (12-78) 01/08/17 05:32 Alkaline Phosphatase 86 Units/L (46-116) 01/08/17 05:32 Total Protein 6.8 g/dL (6.4-8.2) 01/08/17 05:32 Albumin 3.1 g/dL (3.4-5.0) L 01/08/17 05:32 Globulin 3.7 g/dL (2.5-4.5) 01/08/17 05:32 Albumin/Globulin Ratio 0.8 Ratio (1.1-2.1) L 01/08/17 05:32 Prealbumin 9.1 mg/dL (18-35.7) L 01/06/17 05:22 Specimen Type Clean catch urine 01/04/17 02:17 Urine Color Yellow (YELLOW) 01/04/17 02:17 Urine Appearance Clear (CLEAR) 01/04/17 02:17 Urine pH 8.0 (5.0 - 8.0) 01/04/17 02:17 Ur Specific [place] 1.010 (1.000-1.030) 01/04/17 02:17 Urine Protein Negative (NEGATIVE) 01/04/17 02:17 Urine Glucose (UA) Negative (NEGATIVE) 01/04/17 02:17 Urine Ketones Negative (NEGATIVE) 01/04/17 02:17 Urine Occult Blood Negative (NEGATIVE) 01/04/17 02:17 Urine Nitrite Negative (NEGATIVE) 01/04/17 02:17 Urine Bilirubin Negative (NEGATIVE) 01/04/17 02:17 Urine Urobilinogen Normal (NORMAL) 01/04/17 02:17 Ur Leukocyte Esterase Negative (NEGATIVE) 01/04/17 02:17 Urine RBC None seen /HPF (NEGATIVE) 01/04/17 02:17 Urine WBC None seen /HPF (NEGATIVE) 01/04/17 02:17 Ur Squamous Epith Cells Rare /HPF (NEGATIVE) 01/04/17 02:17 Urine Bacteria Negative /HPF (NEGATIVE) 01/04/17 02:17 Ur Culture Indicated? No/not indicated 01/04/17 02:17 Vancomycin Trough 7.4 ug/mL (15-20) L 01/07/17 20:45 - Plan (1) Laceration of right lower extremity Status: Acute Qualifiers: Encounter type: subsequent encounter Qualified Code(s): S81.811D - Laceration without foreign body, right lower leg, subsequent encounter Plan: Inferior wound needs NPWD. Superior wound demonstrating necrosis. Will likely require debridement and wound vac as well. Skin sloughing noted. Unclear at this time if flap completely necrotic. No drainage seen on exam. Monitor. Continue wound care. Will follow.
[2017-01-08] MEDS: PHARMACY CONSULT - DOSE _____ XX SCH (15:19)
[2017-01-08] MEDS ORDERED: STERILE WATER IRRIGATION IR ONE (17:59)
[2017-01-08] MEDS: VANCOMYCIN 1 GM PREMIX (ADDVANTAGE) 250 ML IV SCH (21:02)
[2017-01-08] MEDS: COLACE CAP 100 MG PO SCH (21:04)
[2017-01-08] MEDS: XANAX PO PRN (21:04)
[2017-01-08] MEDS: PHENERGAN INJ 25 MG IV PRN (21:04)
[2017-01-08] MEDS: COUMADIN TAB 5 MG PO SCH (21:04)
[2017-01-08] MEDS: XALATAN EACHEYE SCH (21:05)
[2017-01-09] MEDS: NS 1000 ML 1,000 ML IV SCH (06:13)
[2017-01-09 06:21] LABS: BASOPHILS # (AUTO) 0.1 X10^3/uL (0.0-0.1); BASOPHILS % (AUTO) 0.7 % (0.2-1.0); EOSINOPHILS # (AUTO) 0.1 x10^3/uL (0.0-0.2); EOSINOPHILS % (AUTO) 0.7 % (0.9-2.9); HEMATOCRIT 28.4 % (36.0-47.0); HEMOGLOBIN 9.8 g/dL (12.0-16.0); LYMPHOCYTES # (AUTO) 1.1 X10^3/uL (1.3-2.9); LYMPHOCYTES % (AUTO) 13.6 % (21.0-51.0); MEAN CORPUSCULAR HEMOGLOBIN 33.7 pg (27.0-34.0); MEAN CORPUSCULAR HGB CONC 34.4 g/dL (33.0-35.0); MEAN PLATELET VOLUME 8.8 fL (7.4-11.0); MONOCYTES # (AUTO) 0.9 x10^3/uL (0.3-0.8); MONOCYTES % (AUTO) 11.1 % (0.0-13.0); NEUTROPHILS # (AUTO) 6.1 x10^3/uL (2.2-4.8); NEUTROPHILS % (AUTO) 73.9 % (42.0-75.0); PLATELET COUNT 269 X10^3/uL (150.0-450.0); RED CELL DISTRIBUTION WIDTH 15.4 % (11.6-16.5); WHITE BLOOD COUNT 8.2 X10^3/uL (3.6-10.0)
[2017-01-09 06:27] LABS: ALANINE AMINOTRANSFERASE 17 Units/L (12-78); ALBUMIN 3.1 g/dL (3.4-5.0); ALKALINE PHOSPHATASE 97 Units/L (46-116); ASPARTATE AMINO TRANSFERASE 19 Units/L (15-37); BLOOD UREA NITROGEN 12 mg/dL (7-18); CALCIUM 9.4 mg/dL (8.5-10.1); CARBON DIOXIDE 28.7 mmol/L (21-32); CHLORIDE 107 mmol/L (98-107); COR CA(FOR HYPOALB) 10.1 mg/dL (8.5-10.1); CREATININE 0.85 mg/dL (0.55-1.02); MAGNESIUM 2.5 mg/dL (1.7-2.9); SODIUM 143 mmol/L (136-145); TOTAL PROTEIN 6.8 g/dL (6.4-8.2); eGFR BLACK RACES > 60 (>60); eGFR NON BLACK RACES > 60 (>60)
[2017-01-09] MEDS: LOPRESSOR TAB 25 MG PO SCH ×2 (09:31→21:57)
[2017-01-09] MEDS: TAB-A-VITE PO SCH (09:32)
[2017-01-09] MEDS: ZINC SULFATE PO SCH (09:32)
[2017-01-09] MEDS: NexIUM PO SCH (09:32)
[2017-01-09] MEDS: ZANTAC PO SCH ×2 (09:32→21:59)
[2017-01-09] MEDS: ZANAFLEX PO SCH ×2 (09:33→21:56)
[2017-01-09] MEDS: MIRALAX POWDER (1 DOSE 17GM) PO SCH (09:33)
[2017-01-09] MEDS: NICOTINE PATCH TD SCH (09:33)
[2017-01-09] MEDS: ALBUMIN HUMAN 25%- 100ML 100 ML IV SCH (09:34)
[2017-01-09] MEDS: ALPHAGAN 0.2% OPHTH SOLN EACHEYE SCH ×2 (09:54→21:55)
[2017-01-09] MEDS: VANCOMYCIN 1 GM PREMIX (ADDVANTAGE) 250 ML IV SCH ×2 (09:54→21:56)
[2017-01-09] MEDS: PERCOCET TAB 5/325 MG PO SCH ×4 (09:55→21:56)
[2017-01-09] MEDS: PHARMACY CONSULT - DOSE _____ XX SCH (16:15)
[2017-01-09] MEDS: XANAX PO PRN (21:56)
[2017-01-09] MEDS: COLACE CAP 100 MG PO SCH (21:57)
[2017-01-09] MEDS: COUMADIN TAB 5 MG PO SCH (21:57)
[2017-01-09] MEDS: PHENERGAN INJ 25 MG IV PRN (21:58)
[2017-01-09] MEDS: XALATAN EACHEYE SCH (21:59)
[2017-01-10] MEDS: DEMEROL INJ IVP PRN (05:17)
[2017-01-10] MEDS: NS 1000 ML 1,000 ML IV SCH ×2 (06:31→20:59)
[2017-01-10 06:39] LABS: ALANINE AMINOTRANSFERASE 18 Units/L (12-78); ALBUMIN 3.2 g/dL (3.4-5.0); ALKALINE PHOSPHATASE 86 Units/L (46-116); ASPARTATE AMINO TRANSFERASE 27 Units/L (15-37); BLOOD UREA NITROGEN 13 mg/dL (7-18); CALCIUM 9.4 mg/dL (8.5-10.1); CARBON DIOXIDE 27.9 mmol/L (21-32); CHLORIDE 107 mmol/L (98-107); CREATININE 0.68 mg/dL (0.55-1.02); SODIUM 142 mmol/L (136-145); TOTAL PROTEIN 6.7 g/dL (6.4-8.2); eGFR BLACK RACES > 60 (>60); eGFR NON BLACK RACES > 60 (>60)
[2017-01-10 07:17] LABS: BASOPHILS # (AUTO) 0.2 X10^3/uL (0.0-0.1); BASOPHILS % (AUTO) 1.6 % (0.2-1.0); EOSINOPHILS # (AUTO) 0.1 x10^3/uL (0.0-0.2); EOSINOPHILS % (AUTO) 1.1 % (0.9-2.9); HEMATOCRIT 28.3 % (36.0-47.0); HEMOGLOBIN 9.5 g/dL (12.0-16.0); LYMPHOCYTES # (AUTO) 2.3 X10^3/uL (1.3-2.9); LYMPHOCYTES % (AUTO) 18.2 % (21.0-51.0); MEAN CORPUSCULAR HEMOGLOBIN 32.8 pg (27.0-34.0); MEAN CORPUSCULAR HGB CONC 33.8 g/dL (33.0-35.0); MEAN CORPUSCULAR VOLUME 97.2 fL (80.0-100.0); MEAN PLATELET VOLUME 9.2 fL (7.4-11.0); MONOCYTES # (AUTO) 1.6 x10^3/uL (0.3-0.8); MONOCYTES % (AUTO) 12.4 % (0.0-13.0); NEUTROPHILS # (AUTO) 8.5 x10^3/uL (2.2-4.8); NEUTROPHILS % (AUTO) 66.7 % (42.0-75.0); PLATELET COUNT 236 X10^3/uL (150.0-450.0); RED BLOOD COUNT 2.91 X10^6/uL (3.5-5.4); RED CELL DISTRIBUTION WIDTH 15.5 % (11.6-16.5); WHITE BLOOD COUNT 12.7 X10^3/uL (3.6-10.0)
[2017-01-10 07:40] LABS: PLATELET MORPHOLOGY COMMENT NORMAL (NORMAL)
[2017-01-10] MEDS ORDERED: XYLOCAINE 1% and EPINEPHRINE 1:100,000 ONE (08:02)
[2017-01-10] MEDS ORDERED: MARCAINE 0.25% INJ ONE (08:02)
[2017-01-10] MEDS: LOPRESSOR TAB 25 MG PO SCH ×2 (08:52→20:59)
[2017-01-10] MEDS ORDERED: KETALAR ONE (08:52)
[2017-01-10] MEDS: VANCOMYCIN 1 GM PREMIX (ADDVANTAGE) 250 ML IV SCH ×2 (08:52→22:27)
[2017-01-10] MEDS ORDERED: NS 1000 ML 1,000 ML ONE (09:08)
[2017-01-10 09:41] LABS: ABG ALLEN TEST POS; ABG BASE EXCESS 4.3 mmol/L (-2.0-2.0); ABG HCO3 26.5 mmol/L (22-26)
--- NOTE | 2017-01-10 09:54 | PCM.PROG ---
Progress Note - Progress Note for Day of Date: 01/06/17 - Subjective Subjective: WAS ADMITTED FOR A WOUND/HEMATOMA TO THE RIGHT LOWER LEG. SHE IS STATUS POST DEBRIDEMENT OF WOUND TO THE RIGHT LEG YESTERDAY BY . TODAY, PATIENT IS ALERT AND ORIENTED, LYING IN BED ON MORNING ROUNDS. SHE CONTINUES WITH COMPLAINTS OF RIGHT LEG PAIN. ON EXAMINATION, LUNGS ARE CLEAR TO AUSCULTATION. ABDOMEN IS ROUND, SOFT, AND NON-TENDER WITH NORMAL BOWEL SOUNDS NOTED IN ALL QUADRANTS. RIGHT LOWER LEG IS NOTED WITH A KERLIX DRESSING. DRESSING IS DRY AND INTACT WITH NO SIGNS OR SYMPTOMS NOTED AROUND SITE. HER VITAL SIGNS THIS MORNING ARE 99.2-82-20-98%-143/67. ABNORMAL LAB VALUES INCLUDE THE FOLLOWING: RBC 2.84, HGB 9.6, HCT 28.4, INR 1.10, CHLORIDE 108, CALCIUM 8.3, ALT 12, ALT 10, TOTAL PROTEIN 5.7, ALBUMIN 2.0, A/G RATIO 0.5. PRELIMINARY RESULTS CONTINUE TO REPORT GROWTH OF COAGULASE NEGATIVE STAPH. TODAY, WE WILL CONTINUE WITH WOUND CARE AND ANTIBIOTICS. WE PLAN TO FOLLOW UP WITH AM LABS AND CONTINUE TO MONITOR PATIENT. - Past Medical Family Social History Past Med/Fam/Surg Hx: No changes since H&P Allergies: Allergies hydromorphone [From Dilaudid] Allergy (Verified 12/31/16 20:37) morphine Allergy (Verified 12/31/16 19:57) penicillin G Allergy (Verified 12/31/16 20:37) - Review of Systems ROS: No change since H&P - Vital Signs and I&O's Vital Signs: Temperature 99.5 F Pulse Rate [Right Brachial] 84 Pulse Rate [Left Brachial] 73 Pulse Rate 85 Respiratory Rate 18 Blood Pressure [Left Arm] 171/75 Blood Pressure [Right Arm] 207/95 Blood Pressure 190/84 O2 Sat by Pulse Oximetry 97 Intake and Output: Intake & Output 01/07/17 01/08/17 01/09/17 01/10/17 12:59 12:59 11:59 11:59 Intake Total 1590 Output Total Balance 1590 - Physical Exam Oriented: Normal Eyes: Normal Ear: Normal Nose: Normal Respiratory: Normal Cardiovascular: Normal : Normal Auscultation: Bowel Sounds: Normal Tenderness: Normal Skin: Wound (Large hematoma right medial LE >6 cm. Mild erythema. TTP. Superior to hematoma extensive ecchymoses with sutures in place. (+) edema. poor capillary refill.), Bruising (LE's.), Ecchymosis (At laceration repair.) Musculoskeletal: Normal Psychiatric: Anxiety Mood Description: Calm Affect: Normal Speech Pattern: Clear, Appropriate - Laboratory and Diagnostics Result Diagrams: 01/10/17 07:05 01/10/17 05:50 Labs: 01/04/17 13:54 Leg - Right Gram Stain - Final 01/04/17 13:54 Leg - Right Wound Culture - Final Laboratory WBC 12.7 X10^3/uL (3.6-10.0) H 01/10/17 07:05 RBC 2.91 X10^6/uL (3.5-5.4) L 01/10/17 07:05 Hgb 9.5 g/dL (12.0-16.0) L 01/10/17 07:05 Hct 28.3 % (36.0-47.0) L 01/10/17 07:05 MCV 97.2 fL (80.0-100.0) 01/10/17 07:05 MCH 32.8 pg (27.0-34.0) 01/10/17 07:05 MCHC 33.8 g/dL (33.0-35.0) 01/10/17 07:05 RDW 15.5 % (11.6-16.5) 01/10/17 07:05 Plt Count 236 X10^3/uL (150.0-450.0) 01/10/17 07:05 Plt Count Comment Adequate (ADEQUATE) 01/10/17 07:05 MPV 9.2 fL (7.4-11.0) 01/10/17 07:05 Neut % 66.7 % (42.0-75.0) 01/10/17 07:05 Lymph % 18.2 % (21.0-51.0) L 01/10/17 07:05 [place] % 12.4 % (0.0-13.0) 01/10/17 07:05 Eos % 1.1 % (0.9-2.9) 01/10/17 07:05 Baso % 1.6 % (0.2-1.0) H 01/10/17 07:05 Neut # 8.5 x10^3/uL (2.2-4.8) H 01/10/17 07:05 Lymph # 2.3 X10^3/uL (1.3-2.9) 01/10/17 07:05 [place] # 1.6 x10^3/uL (0.3-0.8) H 01/10/17 07:05 Eos # 0.1 x10^3/uL (0.0-0.2) 01/10/17 07:05 Baso # 0.2 X10^3/uL (0.0-0.1) H 01/10/17 07:05 Absolute Nucleated RBC 0.2 /100WBC 01/10/17 07:05 Total Counted 100 01/10/17 07:05 Neutrophils % (Manual) 58 % (39-76) 01/10/17 07:05 Lymphocytes % (Manual) 26 % (13-43) 01/10/17 07:05 Monocytes % (Manual) 14 % (4-9) H 01/10/17 07:05 Eosinophils % (Manual) 2 % (0-6) 01/10/17 07:05 Plt Morphology Comment Normal (NORMAL) 01/10/17 07:05 RBC Morphology Normal (NORMAL) 01/10/17 07:05 INR Target Range - 01/10/17 05:50 INR 2.07 (0.8-1.3) H 01/10/17 05:50 Sample Site Lra 01/10/17 09:35 ABG pH 7.540 (7.35-7.45) H 01/10/17 09:35 ABG pCO2 31.0 mmHg (35.0-45.0) L 01/10/17 09:35 ABG pO2 82.0 mmHg (80.0-100.0) 01/10/17 09:35 ABG HCO3 26.5 mmol/L (22-26) H 01/10/17 09:35 ABG O2 Saturation 97.0 % (90-100) 01/10/17 09:35 ABG Base Excess 4.3 mmol/L (-2.0-2.0) H 01/10/17 09:35 Judd Test Pos 01/10/17 09:35 A-a Gradient 29.0 mmHg 01/10/17 09:35 FiO2 21.000 01/10/17 09:35 Blood Gas Comments [place] well cs 01/10/17 09:35 Sodium 142 mmol/L (136-145) 01/10/17 05:50 Corrected Sodium TNP 01/10/17 05:50 Potassium 4.1 mmol/L (3.5-5.1) 01/10/17 05:50 Chloride 107 mmol/L (98-107) 01/10/17 05:50 Carbon Dioxide 27.9 mmol/L (21-32) 01/10/17 05:50 BUN 13 mg/dL (7-18) 01/10/17 05:50 Creatinine 0.68 mg/dL (0.55-1.02) 01/10/17 05:50 Est GFR (MDRD) Af Amer > 60 (>60) 01/10/17 05:50 Est GFR (MDRD) Non-Af > 60 (>60) 01/10/17 05:50 Glucose 85 mg/dL (65-99) 01/10/17 05:50 Calcium 9.4 mg/dL (8.5-10.1) 01/10/17 05:50 Corrected Calcium 10.0 mg/dL (8.5-10.1) 01/10/17 05:50 Magnesium 2.3 mg/dL (1.7-2.9) 01/10/17 05:50 Total Bilirubin 0.70 mg/dL (0.2-1.0) 01/10/17 05:50 AST 27 Units/L (15-37) 01/10/17 05:50 ALT 18 Units/L (12-78) 01/10/17 05:50 Alkaline Phosphatase 86 Units/L (46-116) 01/10/17 05:50 Total Protein 6.7 g/dL (6.4-8.2) 01/10/17 05:50 Albumin 3.2 g/dL (3.4-5.0) L 01/10/17 05:50 Globulin 3.5 g/dL (2.5-4.5) 01/10/17 05:50 Albumin/Globulin Ratio 0.9 Ratio (1.1-2.1) L 01/10/17 05:50 Prealbumin 9.1 mg/dL (18-35.7) L 01/06/17 05:22 Specimen Type Clean catch urine 01/04/17 02:17 Urine Color Yellow (YELLOW) 01/04/17 02:17 Urine Appearance Clear (CLEAR) 01/04/17 02:17 Urine pH 8.0 (5.0 - 8.0) 01/04/17 02:17 Ur Specific [place] 1.010 (1.000-1.030) 01/04/17 02:17 Urine Protein Negative (NEGATIVE) 01/04/17 02:17 Urine Glucose (UA) Negative (NEGATIVE) 01/04/17 02:17 Urine Ketones Negative (NEGATIVE) 01/04/17 02:17 Urine Occult Blood Negative (NEGATIVE) 01/04/17 02:17 Urine Nitrite Negative (NEGATIVE) 01/04/17 02:17 Urine Bilirubin Negative (NEGATIVE) 01/04/17 02:17 Urine Urobilinogen Normal (NORMAL) 01/04/17 02:17 Ur Leukocyte Esterase Negative (NEGATIVE) 01/04/17 02:17 Urine RBC None seen /HPF (NEGATIVE) 01/04/17 02:17 Urine WBC None seen /HPF (NEGATIVE) 01/04/17 02:17 Ur Squamous Epith Cells Rare /HPF (NEGATIVE) 01/04/17 02:17 Urine Bacteria Negative /HPF (NEGATIVE) 01/04/17 02:17 Ur Culture Indicated? No/not indicated 01/04/17 02:17 Vancomycin Trough 7.4 ug/mL (15-20) L 01/07/17 20:45 Random Vancomycin 14.4 ug/mL 01/09/17 08:55 - Plan (1) Cellulitis Status: Acute Qualifiers: Site of cellulitis: extremity Site of cellulitis of extremity: lower extremity Laterality: right Qualified Code(s): L03.115 - Cellulitis of right lower limb Plan: CONTINUE WOUND CARE, CONTINUE VANCOMYCIN 1GM DAILY, SURGICAL CONSULT, CONTINUE TO MONITOR (2) Laceration of right lower extremity Status: Acute Qualifiers: Encounter type: subsequent encounter Qualified Code(s): S81.811D - Laceration without foreign body, right lower leg, subsequent encounter Plan: CONTINUE WOUND CARE, CONTINUE VANCOMYCIN 1GM DAILY, SURGICAL CONSULT, CONTINUE TO MONITOR (3) S/P debridement Status: Acute Plan: WOUND CARE, CONTINUE VANCOMYCIN, CONTINUE TO MONITOR (4) Hypomagnesemia Status: Acute Plan: REPLACE WITH MAGNESIUM PROTOCOL, CONTINUE TO MONITOR (5) Hypokalemia Status: Acute Plan: REPLACE WITH POTASSIUM PROTOCOL, CONTINUE TO MONITOR (6) Constipation Status: Acute Qualifiers: Constipation type: drug induced constipation Qualified Code(s): K59.03 - Drug induced constipation Plan: CONTINUE COLACE, CONTINUE TO MONITOR (7) Anxiety Status: Chronic Plan: CONTINUE XANAX, CONTINUE TO MONITOR (8) GERD (gastroesophageal reflux disease) Status: Chronic Qualifiers: Esophagitis presence: esophagitis presence not specified Qualified Code(s) : K21.9 - Gastro-esophageal reflux disease without esophagitis Plan: CONTINUE NEXIUM, CONTINUE TO MONITOR (9) Hypertension Status: Chronic Qualifiers: Hypertension type: essential hypertension Qualified Code(s): I10 - Essential (primary) hypertension Plan: CONTINUE METOPROLOL, CONTINUE TO MONITOR
--- NOTE | 2017-01-10 10:28 | PCM.PROG ---
Progress Note - Progress Note for Day of Date: 01/07/17 - Subjective Subjective: WAS ADMITTED FOR A WOUND/HEMATOMA TO THE RIGHT LOWER LEG. SHE IS STATUS POST DEBRIDEMENT OF WOUND TO THE RIGHT LEG YESTERDAY BY . TODAY, PATIENT IS ALERT AND ORIENTED, LYING IN BED ON MORNING ROUNDS. PATIENT APPEARS VERY AGITATED AND COMPLAINTS OF SEVERE PAIN TO THE RIGHT LEG. PATIENT REPORTS THAT PAIN IS MUCH WORSE AFTER THE DEBRIDEMENT THAN IT WAS BEFORE. ABDOMEN IS ROUND, SOFT, AND NON-TENDER WITH NORMAL BOWEL SOUNDS NOTED IN ALL QUADRANTS. RIGHT LOWER LEG IS NOTED WITH A KERLIX DRESSING. DRESSING IS DRY AND INTACT WITH NO SIGNS OR SYMPTOMS NOTED AROUND SITE. WE REMOVED THE DRESSING TO ASSESS THE WOUND. NECROSIS REMAINS TO SUPERIOR WOUND. THERE IS SKIN SLOUGHING NOTED. WE WILL DISCUSS WITH . HER VITAL SIGNS THIS MORNING ARE 98.4-96-20-96%-185/84. ABNORMAL LAB VALUES INCLUDE THE FOLLOWING: WBC 10.1,RBC 2.91, HGB 9.5, HCT 28.3, INR 1.23, ALT 10, TOTAL PROTEIN 5.9, ALBUMIN 2.1, A/G RATIO 0.6. WOUND CULTURE REPORTS GROWTH OF COAGULASE NEGATIVE STAPH. TODAY, WE WILL START A DURGAGSIC 25MCG PATCH AND CHANGE PERCOCET TO SCHEDULED. WE WILL CONSULT WITH ANESTHESIA FOR PLACEMENT OF PICC LINE DUE TO THE NEED FOR AN EXTENDED COURSE OF IV ANTIBIOTICS. PATIENTS SISTER VERBALIZED CONCERNS FOR PATIENTS SAFETY SHOULD SHE HAVE TO RETURN HOME AFTER DISCHARGE. WE FEEL THAT PATIENT COULD BENEFIT FROM ADDITIONAL PHYSICAL THERAPY PRIOR TO RETURNING HOME. WE WILL FURTHER DISCUSS THIS WITH CASE MANAGEMENT. OTHERWISE, WE WILL CONTINUE WITH WOUND CARE AND ANTIBIOTICS. WE PLAN TO FOLLOW UP WITH AM LABS AND CONTINUE TO MONITOR PATIENT. - Past Medical Family Social History Past Med/Fam/Surg Hx: No changes since H&P Allergies: Allergies hydromorphone [From Dilaudid] Allergy (Verified 12/31/16 20:37) morphine Allergy (Verified 12/31/16 19:57) penicillin G Allergy (Verified 12/31/16 20:37) - Review of Systems ROS: No change since H&P - Vital Signs and I&O's Vital Signs: Temperature 99.5 F Pulse Rate [Right Brachial] 84 Pulse Rate [Left Brachial] 73 Pulse Rate 101 Respiratory Rate 18 Blood Pressure [Left Arm] 171/75 Blood Pressure [Right Arm] 207/95 Blood Pressure 173/83 O2 Sat by Pulse Oximetry 97 Intake and Output: Intake & Output 01/07/17 01/08/17 01/09/17 01/10/17 12:59 12:59 11:59 11:59 Intake Total 1590 Output Total Balance 1590 - Physical Exam Oriented: Normal Eyes: Normal Ear: Normal Nose: Normal Respiratory: Normal Cardiovascular: Normal : Normal Auscultation: Bowel Sounds: Normal Palpation: Normal Tenderness: Normal Skin: Wound (Large hematoma right medial LE >6 cm. Mild erythema. TTP. Superior to hematoma extensive ecchymoses with sutures in place. (+) edema. poor capillary refill.), Bruising (LE's.), Ecchymosis (At laceration repair.) Musculoskeletal: Normal Psychiatric: Anxiety Mood Description: Calm Affect: Normal Speech Pattern: Clear, Appropriate - Laboratory and Diagnostics Result Diagrams: 01/10/17 07:05 01/10/17 05:50 Labs: 01/04/17 13:54 Leg - Right Gram Stain - Final 01/04/17 13:54 Leg - Right Wound Culture - Final Laboratory WBC 12.7 X10^3/uL (3.6-10.0) H 01/10/17 07:05 RBC 2.91 X10^6/uL (3.5-5.4) L 01/10/17 07:05 Hgb 9.5 g/dL (12.0-16.0) L 01/10/17 07:05 Hct 28.3 % (36.0-47.0) L 01/10/17 07:05 MCV 97.2 fL (80.0-100.0) 01/10/17 07:05 MCH 32.8 pg (27.0-34.0) 01/10/17 07:05 MCHC 33.8 g/dL (33.0-35.0) 01/10/17 07:05 RDW 15.5 % (11.6-16.5) 01/10/17 07:05 Plt Count 236 X10^3/uL (150.0-450.0) 01/10/17 07:05 Plt Count Comment Adequate (ADEQUATE) 01/10/17 07:05 MPV 9.2 fL (7.4-11.0) 01/10/17 07:05 Neut % 66.7 % (42.0-75.0) 01/10/17 07:05 Lymph % 18.2 % (21.0-51.0) L 01/10/17 07:05 [place] % 12.4 % (0.0-13.0) 01/10/17 07:05 Eos % 1.1 % (0.9-2.9) 01/10/17 07:05 Baso % 1.6 % (0.2-1.0) H 01/10/17 07:05 Neut # 8.5 x10^3/uL (2.2-4.8) H 01/10/17 07:05 Lymph # 2.3 X10^3/uL (1.3-2.9) 01/10/17 07:05 [place] # 1.6 x10^3/uL (0.3-0.8) H 01/10/17 07:05 Eos # 0.1 x10^3/uL (0.0-0.2) 01/10/17 07:05 Baso # 0.2 X10^3/uL (0.0-0.1) H 01/10/17 07:05 Absolute Nucleated RBC 0.2 /100WBC 01/10/17 07:05 Total Counted 100 01/10/17 07:05 Neutrophils % (Manual) 58 % (39-76) 01/10/17 07:05 Lymphocytes % (Manual) 26 % (13-43) 01/10/17 07:05 Monocytes % (Manual) 14 % (4-9) H 01/10/17 07:05 Eosinophils % (Manual) 2 % (0-6) 01/10/17 07:05 Plt Morphology Comment Normal (NORMAL) 01/10/17 07:05 RBC Morphology Normal (NORMAL) 01/10/17 07:05 INR Target Range - 01/10/17 05:50 INR 2.07 (0.8-1.3) H 01/10/17 05:50 Sample Site Lra 01/10/17 09:35 ABG pH 7.540 (7.35-7.45) H 01/10/17 09:35 ABG pCO2 31.0 mmHg (35.0-45.0) L 01/10/17 09:35 ABG pO2 82.0 mmHg (80.0-100.0) 01/10/17 09:35 ABG HCO3 26.5 mmol/L (22-26) H 01/10/17 09:35 ABG O2 Saturation 97.0 % (90-100) 01/10/17 09:35 ABG Base Excess 4.3 mmol/L (-2.0-2.0) H 01/10/17 09:35 Judd Test Pos 01/10/17 09:35 A-a Gradient 29.0 mmHg 01/10/17 09:35 FiO2 21.000 01/10/17 09:35 Blood Gas Comments [place] well cs 01/10/17 09:35 Sodium 142 mmol/L (136-145) 01/10/17 05:50 Corrected Sodium TNP 01/10/17 05:50 Potassium 4.1 mmol/L (3.5-5.1) 01/10/17 05:50 Chloride 107 mmol/L (98-107) 01/10/17 05:50 Carbon Dioxide 27.9 mmol/L (21-32) 01/10/17 05:50 BUN 13 mg/dL (7-18) 01/10/17 05:50 Creatinine 0.68 mg/dL (0.55-1.02) 01/10/17 05:50 Est GFR (MDRD) Af Amer > 60 (>60) 01/10/17 05:50 Est GFR (MDRD) Non-Af > 60 (>60) 01/10/17 05:50 Glucose 85 mg/dL (65-99) 01/10/17 05:50 Calcium 9.4 mg/dL (8.5-10.1) 01/10/17 05:50 Corrected Calcium 10.0 mg/dL (8.5-10.1) 01/10/17 05:50 Magnesium 2.3 mg/dL (1.7-2.9) 01/10/17 05:50 Total Bilirubin 0.70 mg/dL (0.2-1.0) 01/10/17 05:50 AST 27 Units/L (15-37) 01/10/17 05:50 ALT 18 Units/L (12-78) 01/10/17 05:50 Alkaline Phosphatase 86 Units/L (46-116) 01/10/17 05:50 Total Protein 6.7 g/dL (6.4-8.2) 01/10/17 05:50 Albumin 3.2 g/dL (3.4-5.0) L 01/10/17 05:50 Globulin 3.5 g/dL (2.5-4.5) 01/10/17 05:50 Albumin/Globulin Ratio 0.9 Ratio (1.1-2.1) L 01/10/17 05:50 Prealbumin 9.1 mg/dL (18-35.7) L 01/06/17 05:22 Specimen Type Clean catch urine 01/04/17 02:17 Urine Color Yellow (YELLOW) 01/04/17 02:17 Urine Appearance Clear (CLEAR) 01/04/17 02:17 Urine pH 8.0 (5.0 - 8.0) 01/04/17 02:17 Ur Specific [place] 1.010 (1.000-1.030) 01/04/17 02:17 Urine Protein Negative (NEGATIVE) 01/04/17 02:17 Urine Glucose (UA) Negative (NEGATIVE) 01/04/17 02:17 Urine Ketones Negative (NEGATIVE) 01/04/17 02:17 Urine Occult Blood Negative (NEGATIVE) 01/04/17 02:17 Urine Nitrite Negative (NEGATIVE) 01/04/17 02:17 Urine Bilirubin Negative (NEGATIVE) 01/04/17 02:17 Urine Urobilinogen Normal (NORMAL) 01/04/17 02:17 Ur Leukocyte Esterase Negative (NEGATIVE) 01/04/17 02:17 Urine RBC None seen /HPF (NEGATIVE) 01/04/17 02:17 Urine WBC None seen /HPF (NEGATIVE) 01/04/17 02:17 Ur Squamous Epith Cells Rare /HPF (NEGATIVE) 01/04/17 02:17 Urine Bacteria Negative /HPF (NEGATIVE) 01/04/17 02:17 Ur Culture Indicated? No/not indicated 01/04/17 02:17 Vancomycin Trough 7.4 ug/mL (15-20) L 01/07/17 20:45 Random Vancomycin 14.4 ug/mL 01/09/17 08:55 - Plan (1) Cellulitis Status: Acute Qualifiers: Site of cellulitis: extremity Site of cellulitis of extremity: lower extremity Laterality: right Qualified Code(s): L03.115 - Cellulitis of right lower limb Plan: CONTINUE WOUND CARE, CONTINUE VANCOMYCIN 1GM DAILY, SURGICAL CONSULT, CONTINUE TO MONITOR (2) Laceration of right lower extremity Status: Acute Qualifiers: Encounter type: subsequent encounter Qualified Code(s): S81.811D - Laceration without foreign body, right lower leg, subsequent encounter Plan: CONTINUE WOUND CARE, CONTINUE VANCOMYCIN 1GM DAILY, STATUS POST DEBRIDEMENT, CONTINUE TO MONITOR (3) S/P debridement Status: Acute Plan: WOUND CARE, CONTINUE VANCOMYCIN, CONTINUE TO MONITOR (4) Hypomagnesemia Status: Acute Plan: REPLACE WITH MAGNESIUM PROTOCOL, CONTINUE TO MONITOR (5) Hypokalemia Status: Acute Plan: REPLACE WITH POTASSIUM PROTOCOL, CONTINUE TO MONITOR (6) Constipation Status: Acute Qualifiers: Constipation type: drug induced constipation Qualified Code(s): K59.03 - Drug induced constipation Plan: CONTINUE COLACE, CONTINUE TO MONITOR (7) Anxiety Status: Chronic Plan: CONTINUE XANAX, CONTINUE TO MONITOR (8) GERD (gastroesophageal reflux disease) Status: Chronic Qualifiers: Esophagitis presence: esophagitis presence not specified Qualified Code(s) : K21.9 - Gastro-esophageal reflux disease without esophagitis Plan: CONTINUE NEXIUM, CONTINUE TO MONITOR (9) Hypertension Status: Chronic Qualifiers: Hypertension type: essential hypertension Qualified Code(s): I10 - Essential (primary) hypertension Plan: CONTINUE METOPROLOL, CONTINUE TO MONITOR
--- NOTE | 2017-01-10 10:57 | CT ---
CT brain without contrast Indication: Altered mental status Technique: 5 mm axial images of the brain was performed without IV contrast administration. Coronal a nd sagittal reformatted images were also provided. Findings: Mild generalized cerebral atrophy. There is also mild bilateral periventricular deep white matter hypoattenuation. There is no loss of porter-white differentiation, intra-axial or extra-axial he morrhage. No mass effect or vasogenic edema. Ventricles are normal in caliber. No soft tissue swellin g identified. No acute osseous abnormality. The orbits are normal. Impression: Mild generalized cerebral atrophy and bilateral periventricular hypoattenuation is nonspe cific however can be seen in setting of chronic microvascular ischemic disease. No acute intracranial hemorrhage or mass effect identified. Reported By:
[2017-01-10] MEDS ORDERED: NS IRRIGATION 1000 ML 1,000 ML IR ONE (11:14)
[2017-01-10] MEDS ORDERED: HYDROGEN PEROXIDE 3% ONE (11:27)
[2017-01-10] MEDS ORDERED: REGLAN INJ 10 MG VIAL IVP PRN (11:50)
[2017-01-10] MEDS ORDERED: BENADRYL INJ 50 MG VIAL IVP PRN (11:50)
[2017-01-10] MEDS ORDERED: PHENERGAN INJ 25 MG IVP PRN (11:50)
[2017-01-10] MEDS ORDERED: ZOFRAN INJ 4 MG VIAL IVP PRN (11:50)
--- NOTE | 2017-01-10 12:11 | OR.GENERIC ---
Post-Op Note Generic - Post-Op Note Operative Report: Operative Report Date of Operation: January 10, 2017 Pre-Operative Diagnosis: Right lower extremity and foot traumatic wounds with necrotic skin and subcutaneous tissues. Post-Operative Diagnosis: Right lower extremity and foot traumatic wounds with necrotic skin and subcutaneous tissues (superior [id number] cm, inferior 7x5x1.5 cm , foot wounds 2x1.5x0.5 cm x 2). Procedure: Excisional debridement right lower extremity wounds with scalpel ( skin and subcutaneous tissue). Surgeon: Yfn Leblanc MD. Yard Hand: Valerie Greene CRNA. Anesthesia: Monitored anesthesia care and local. Specimen: None. Estimated blood loss: Minimal. Complications: None Summary: The patient is a 71 year old female who presented with traumatic right lower extremity and foot wounds. The patient was on anticoagulation due to a history of right lower extremity deep vein thrombosis. The superior wound was sutured in the emergency room and the inferior wound underwent debridement previously. Additional necrotic skin and eschar in the wound beds were noted. The patient was offered excisional debridement. The risk and benefits of the procedure including difficulty with anesthesia, bleeding, infection, scar formation, and delayed healing were discussed with the patient. The patient understood these risks and requested the procedure. On January 10, 2017, the patient was brought to the operative theatre. A time out was performed verifying the patient and the procedure. After satisfactory induction of monitored anesthesia care, the right lower extremity was prepped with Chloraprep and draped in the usual fashion. Local was infiltrated around the wound beds. The sutures in the superior wound were removed. The necrotic skin was debrided with a scalpel from each wound. The necrotic eschar and subcutaneous tissue in the wound beds were also debrided with a scalpel. The wound beds were scrubbed with a Hibiclens impregnated brush. Bleeding was controlled using electrocautery. The wounds were irrigated with hydrogen peroxide. Again, bleeding was controlled with electrocautery. The superior wound bed was [id number] cm. The inferior wound was 7x5x1.5 cm. Two proximal foot wounds were 2x1.5x0.5 cm. A dampened kerlix roll was placed in the wound bed. A sterile dressing was placed. The patient was awakened and taken to the recovery room in stable condition. There were no complications. All counts were correct.
[2017-01-10] MEDS: PERCOCET TAB 5/325 MG PO SCH ×4 (14:53→20:59)
[2017-01-10] MEDS: TAB-A-VITE PO SCH (14:53)
[2017-01-10] MEDS: ZINC SULFATE PO SCH (14:54)
[2017-01-10] MEDS: NexIUM PO SCH (14:54)
[2017-01-10] MEDS: ZANTAC PO SCH ×2 (14:54→20:59)
[2017-01-10] MEDS: ZANAFLEX PO SCH ×2 (14:55→20:59)
[2017-01-10] MEDS: NICOTINE PATCH TD SCH (14:56)
[2017-01-10] MEDS: MIRALAX POWDER (1 DOSE 17GM) PO SCH (14:57)
[2017-01-10] MEDS: ALBUMIN HUMAN 25%- 100ML 100 ML IV SCH (14:57)
[2017-01-10] MEDS: ALPHAGAN 0.2% OPHTH SOLN EACHEYE SCH ×2 (15:13→21:01)
[2017-01-10] MEDS ORDERED: VERSED ONE (15:38)
[2017-01-10] MEDS ORDERED: APRESOLINE INJ 20 MG VIAL ONE (15:38)
[2017-01-10] MEDS ORDERED: DIPRIVAN VIAL ONE (15:38)
[2017-01-10] MEDS: COZAAR PO SCH (20:59)
[2017-01-10] MEDS: COLACE CAP 100 MG PO SCH (21:00)
[2017-01-10] MEDS: COUMADIN TAB 5 MG PO SCH (21:00)
[2017-01-10] MEDS: XALATAN EACHEYE SCH (21:01)
[2017-01-10 22:00] LABS: CREATININE 0.68 mg/dL (0.55-1.02); VANCOMYCIN,TROUGH 15.5 ug/mL (15-20)
[2017-01-10] MEDS ORDERED: NS 250 ML IV 250 ML IV ONE (22:21)
[2017-01-10] MEDS ORDERED: VANCOMYCIN HCL 1 GM VIAL ONE (22:21)
[2017-01-11] MEDS: XANAX PO PRN ×2 (02:42→21:37)
[2017-01-11] MEDS: DEMEROL INJ IVP PRN (02:42)
[2017-01-11 05:18] LABS: ALANINE AMINOTRANSFERASE 19 Units/L (12-78); ALBUMIN 3.4 g/dL (3.4-5.0); ALKALINE PHOSPHATASE 85 Units/L (46-116); ASPARTATE AMINO TRANSFERASE 21 Units/L (15-37); BLOOD UREA NITROGEN 11 mg/dL (7-18); CALCIUM 9.6 mg/dL (8.5-10.1); CARBON DIOXIDE 26.8 mmol/L (21-32); CHLORIDE 105 mmol/L (98-107); CREATININE 0.68 mg/dL (0.55-1.02); MAGNESIUM 2.1 mg/dL (1.7-2.9); SODIUM 143 mmol/L (136-145); TOTAL PROTEIN 6.9 g/dL (6.4-8.2); eGFR BLACK RACES > 60 (>60); eGFR NON BLACK RACES > 60 (>60)
[2017-01-11] MEDS: NS 1000 ML 1,000 ML IV SCH ×2 (05:23→20:01)
[2017-01-11 05:44] LABS: BASOPHILS # (AUTO) 0.1 X10^3/uL (0.0-0.1); BASOPHILS % (AUTO) 0.7 % (0.2-1.0); EOSINOPHILS # (AUTO) 0.1 x10^3/uL (0.0-0.2); HEMATOCRIT 28.6 % (36.0-47.0); HEMOGLOBIN 9.9 g/dL (12.0-16.0); LYMPHOCYTES # (AUTO) 1.8 X10^3/uL (1.3-2.9); MEAN CORPUSCULAR HEMOGLOBIN 33.5 pg (27.0-34.0); MEAN CORPUSCULAR HGB CONC 34.5 g/dL (33.0-35.0); MEAN PLATELET VOLUME 8.5 fL (7.4-11.0); MONOCYTES # (AUTO) 1.1 x10^3/uL (0.3-0.8); MONOCYTES % (AUTO) 13.2 % (0.0-13.0); NEUTROPHILS # (AUTO) 5.5 x10^3/uL (2.2-4.8); NEUTROPHILS % (AUTO) 64.1 % (42.0-75.0); PLATELET COUNT 304 X10^3/uL (150.0-450.0); RED BLOOD COUNT 2.94 X10^6/uL (3.5-5.4); RED CELL DISTRIBUTION WIDTH 15.3 % (11.6-16.5); WHITE BLOOD COUNT 8.6 X10^3/uL (3.6-10.0)
[2017-01-11] MEDS: MIRALAX POWDER (1 DOSE 17GM) PO SCH (08:57)
[2017-01-11] MEDS: ALBUMIN HUMAN 25%- 100ML 100 ML IV SCH (08:58)
[2017-01-11] MEDS: TAB-A-VITE PO SCH (08:58)
[2017-01-11] MEDS: ZANAFLEX PO SCH ×2 (08:58→21:36)
[2017-01-11] MEDS: NexIUM PO SCH (08:58)
[2017-01-11] MEDS: LOPRESSOR TAB 25 MG PO SCH ×2 (08:58→21:37)
[2017-01-11] MEDS: ZANTAC PO SCH ×2 (08:58→21:36)
[2017-01-11] MEDS: PERCOCET TAB 5/325 MG PO SCH ×4 (08:58→21:37)
[2017-01-11] MEDS: ZINC SULFATE PO SCH (09:01)
[2017-01-11] MEDS: NICOTINE PATCH TD SCH (09:02)
[2017-01-11] MEDS: ALPHAGAN 0.2% OPHTH SOLN EACHEYE SCH ×2 (09:02→21:38)
[2017-01-11] MEDS: VANCOMYCIN 1 GM PREMIX (ADDVANTAGE) 250 ML IV SCH (11:00)
[2017-01-11 11:45] VITALS: BMI 18.8
--- NOTE | 2017-01-11 11:53 | PCM.PROG ---
Progress Note - Progress Note for Day of Date: 01/10/17 - Subjective Subjective: WAS ADMITTED FOR A WOUND/HEMATOMA TO THE RIGHT LOWER LEG. SHE IS STATUS POST DEBRIDEMENT OF WOUND TO THE RIGHT LEG YESTERDAY BY . TODAY, PATIENT IS ALERT AND ORIENTED, LYING IN BED ON MORNING ROUNDS. SHE IS NOTED WITH CONFUSION AND RESTLESSNESS. PATIENTS SISTER REPORTS THAT PATIENT DID NOT SLEEP WELL AND WAS RESTLESS MOST OF THE NIGHT. SHE CONTINUES WITH PAIN TO THE RIGHT LOWER EXTREEMITY. ON EXAMINATION, LUNGS ARE NOTED CLEAR TO AUSCULTATION. ABDOMEN IS ROUND, SOFT, AND NON-TENDER WITH NORMAL BOWEL SOUNDS NOTED IN ALL QUADRANTS. RIGHT LOWER LEG IS NOTED WITH A KERLIX DRESSING. NECROSIS AND SLOUGHING REMAINS TO SUPERIOR WOUND. PLANS TO TAKE PATIENT BACK TO THE OR THIS MORNING FOR FURTHER DEBRIDEMENT. HER VITAL SIGNS THIS MORNING ARE 98.9-84-18-95%-207/95. ABNORMAL LAB VALUES INCLUDE THE FOLLOWING: RBC 2.91, HGB 9.5, HCT 28.3, INR 2.07, ALBUMIN 3.2, A/G RATIO 0.9. AN ABG WAS OBTAINED. IT REPORTED PH 7.540, PC02 31, PO2 82, HC03 26.5, BASE EXCESS 4.3. WE OBTAINED A BRAIN CT. IT REPORTED MILD GENERALIZED CEREBRAL ATROPHY AND BILATERAL PERIVENTRICULAR HYPOATTENUATION IS NONSPECIFIC HOWEVER CAN BE SEEN IN THE SETTING OF CHRONIC MICROVASCULAR ISCHEMIC DISEASE. NO ACUTE INTRACRANIAL HEMORRHAGE OR MASS EFFECT IDENTIFIED. PICC LINE WAS PLACED YESTERDAY. CASE MANAGEMENT IS RESEARCHING OPTIONS FOR PATIENT AFTER DISCHARGE FOR PHYSICAL THERAPY, WOUND CARE, AND IV ANTIBIOTICS. TODAY, WE WILL START LOSARTAN 50MG AT BEDTIME. OTHERWISE, WE WILL CONTINUE WITH CURRENT PLAN OF CARE. WE PLAN TO FOLLOW UP WITH AM LABS AND CONTINUE TO MONITOR PATIENT. - Past Medical Family Social History Past Med/Fam/Surg Hx: No changes since H&P Allergies: Allergies hydromorphone [From Dilaudid] Allergy (Verified 12/31/16 20:37) morphine Allergy (Verified 12/31/16 19:57) penicillin G Allergy (Verified 12/31/16 20:37) - Review of Systems ROS: No change since H&P - Vital Signs and I&O's Vital Signs: Temperature 98 F Pulse Rate [Right Brachial] 110 Pulse Rate [Left Brachial] 107 Pulse Rate 96 Respiratory Rate 18 Blood Pressure [Left Arm] 187/84 Blood Pressure [Right Arm] 177/87 Blood Pressure 186/84 O2 Sat by Pulse Oximetry 95 Intake and Output: Intake & Output 01/08/17 01/09/17 01/10/17 01/11/17 12:59 11:59 11:59 11:59 Intake Total 1590 360 Output Total 1000 Balance 590 360 - Physical Exam Oriented: Normal Eyes: Normal Ear: Normal Nose: Normal Respiratory: Normal Cardiovascular: Normal : Normal Auscultation: Bowel Sounds: Normal Palpation: Normal Tenderness: Normal Skin: Wound (Large hematoma right medial LE >6 cm. Mild erythema. TTP. Superior to hematoma extensive ecchymoses with sutures in place. (+) edema. poor capillary refill.), Bruising (LE's.), Ecchymosis (At laceration repair.) Musculoskeletal: Normal Psychiatric: Anxiety Mood Description: Calm Affect: Normal Speech Pattern: Clear - Laboratory and Diagnostics Result Diagrams: 01/11/17 04:50 01/11/17 04:50 Labs: 01/04/17 13:54 Leg - Right Gram Stain - Final 01/04/17 13:54 Leg - Right Wound Culture - Final Laboratory WBC 8.6 X10^3/uL (3.6-10.0) 01/11/17 04:50 RBC 2.94 X10^6/uL (3.5-5.4) L 01/11/17 04:50 Hgb 9.9 g/dL (12.0-16.0) L 01/11/17 04:50 Hct 28.6 % (36.0-47.0) L 01/11/17 04:50 MCV 97.0 fL (80.0-100.0) 01/11/17 04:50 MCH 33.5 pg (27.0-34.0) 01/11/17 04:50 MCHC 34.5 g/dL (33.0-35.0) 01/11/17 04:50 RDW 15.3 % (11.6-16.5) 01/11/17 04:50 Plt Count 304 X10^3/uL (150.0-450.0) 01/11/17 04:50 Plt Count Comment Adequate (ADEQUATE) 01/10/17 07:05 MPV 8.5 fL (7.4-11.0) 01/11/17 04:50 Neut % 64.1 % (42.0-75.0) 01/11/17 04:50 Lymph % 21.0 % (21.0-51.0) 01/11/17 04:50 [place] % 13.2 % (0.0-13.0) H 01/11/17 04:50 Eos % 1.0 % (0.9-2.9) 01/11/17 04:50 Baso % 0.7 % (0.2-1.0) 01/11/17 04:50 Neut # 5.5 x10^3/uL (2.2-4.8) H 01/11/17 04:50 Lymph # 1.8 X10^3/uL (1.3-2.9) 01/11/17 04:50 [place] # 1.1 x10^3/uL (0.3-0.8) H 01/11/17 04:50 Eos # 0.1 x10^3/uL (0.0-0.2) 01/11/17 04:50 Baso # 0.1 X10^3/uL (0.0-0.1) 01/11/17 04:50 Absolute Nucleated RBC 0.0 /100WBC 01/11/17 04:50 Total Counted 100 01/10/17 07:05 Neutrophils % (Manual) 58 % (39-76) 01/10/17 07:05 Lymphocytes % (Manual) 26 % (13-43) 01/10/17 07:05 Monocytes % (Manual) 14 % (4-9) H 01/10/17 07:05 Eosinophils % (Manual) 2 % (0-6) 01/10/17 07:05 Plt Morphology Comment Normal (NORMAL) 01/10/17 07:05 RBC Morphology Normal (NORMAL) 01/10/17 07:05 INR Target Range - 01/11/17 04:50 INR 2.68 (0.8-1.3) H 01/11/17 04:50 Sample Site Lra 01/10/17 09:35 ABG pH 7.540 (7.35-7.45) H 01/10/17 09:35 ABG pCO2 31.0 mmHg (35.0-45.0) L 01/10/17 09:35 ABG pO2 82.0 mmHg (80.0-100.0) 01/10/17 09:35 ABG HCO3 26.5 mmol/L (22-26) H 01/10/17 09:35 ABG O2 Saturation 97.0 % (90-100) 01/10/17 09:35 ABG Base Excess 4.3 mmol/L (-2.0-2.0) H 01/10/17 09:35 Judd Test Pos 01/10/17 09:35 A-a Gradient 29.0 mmHg 01/10/17 09:35 FiO2 21.000 01/10/17 09:35 Blood Gas Comments [place] well cs 01/10/17 09:35 Sodium 143 mmol/L (136-145) 01/11/17 04:50 Corrected Sodium TNP 01/11/17 04:50 Potassium 3.5 mmol/L (3.5-5.1) 01/11/17 04:50 Chloride 105 mmol/L (98-107) 01/11/17 04:50 Carbon Dioxide 26.8 mmol/L (21-32) 01/11/17 04:50 BUN 11 mg/dL (7-18) 01/11/17 04:50 Creatinine 0.68 mg/dL (0.55-1.02) 01/11/17 04:50 Est GFR (MDRD) Af Amer > 60 (>60) 01/11/17 04:50 Est GFR (MDRD) Non-Af > 60 (>60) 01/11/17 04:50 Glucose 81 mg/dL (65-99) 01/11/17 04:50 Calcium 9.6 mg/dL (8.5-10.1) 01/11/17 04:50 Corrected Calcium TNP 01/11/17 04:50 Magnesium 2.1 mg/dL (1.7-2.9) 01/11/17 04:50 Total Bilirubin 0.80 mg/dL (0.2-1.0) 01/11/17 04:50 AST 21 Units/L (15-37) 01/11/17 04:50 ALT 19 Units/L (12-78) 01/11/17 04:50 Alkaline Phosphatase 85 Units/L (46-116) 01/11/17 04:50 Total Protein 6.9 g/dL (6.4-8.2) 01/11/17 04:50 Albumin 3.4 g/dL (3.4-5.0) 01/11/17 04:50 Globulin 3.5 g/dL (2.5-4.5) 01/11/17 04:50 Albumin/Globulin Ratio 1.0 Ratio (1.1-2.1) L 01/11/17 04:50 Prealbumin 9.1 mg/dL (18-35.7) L 01/06/17 05:22 Specimen Type Clean catch urine 01/04/17 02:17 Urine Color Yellow (YELLOW) 01/04/17 02:17 Urine Appearance Clear (CLEAR) 01/04/17 02:17 Urine pH 8.0 (5.0 - 8.0) 01/04/17 02:17 Ur Specific [place] 1.010 (1.000-1.030) 01/04/17 02:17 Urine Protein Negative (NEGATIVE) 01/04/17 02:17 Urine Glucose (UA) Negative (NEGATIVE) 01/04/17 02:17 Urine Ketones Negative (NEGATIVE) 01/04/17 02:17 Urine Occult Blood Negative (NEGATIVE) 01/04/17 02:17 Urine Nitrite Negative (NEGATIVE) 01/04/17 02:17 Urine Bilirubin Negative (NEGATIVE) 01/04/17 02:17 Urine Urobilinogen Normal (NORMAL) 01/04/17 02:17 Ur Leukocyte Esterase Negative (NEGATIVE) 01/04/17 02:17 Urine RBC None seen /HPF (NEGATIVE) 01/04/17 02:17 Urine WBC None seen /HPF (NEGATIVE) 01/04/17 02:17 Ur Squamous Epith Cells Rare /HPF (NEGATIVE) 01/04/17 02:17 Urine Bacteria Negative /HPF (NEGATIVE) 01/04/17 02:17 Ur Culture Indicated? No/not indicated 01/04/17 02:17 Vancomycin Trough 15.5 ug/mL (15-20) 01/10/17 21:22 Random Vancomycin 14.4 ug/mL 01/09/17 08:55 - Plan (1) Cellulitis Status: Acute Qualifiers: Site of cellulitis: extremity Site of cellulitis of extremity: lower extremity Laterality: right Qualified Code(s): L03.115 - Cellulitis of right lower limb Plan: CONTINUE WOUND CARE, CONTINUE VANCOMYCIN 1GM DAILY, SURGICAL CONSULT, CONTINUE TO MONITOR (2) Laceration of right lower extremity Status: Acute Qualifiers: Encounter type: subsequent encounter Qualified Code(s): S81.811D - Laceration without foreign body, right lower leg, subsequent encounter Plan: CONTINUE WOUND CARE, CONTINUE VANCOMYCIN 1GM DAILY, STATUS POST DEBRIDEMENT, CONTINUE TO MONITOR (3) S/P debridement Status: Acute Plan: WOUND CARE, CONTINUE VANCOMYCIN, CONTINUE TO MONITOR (4) Hypomagnesemia Status: Acute Plan: REPLACE WITH MAGNESIUM PROTOCOL, CONTINUE TO MONITOR (5) Hypokalemia Status: Acute Plan: REPLACE WITH POTASSIUM PROTOCOL, CONTINUE TO MONITOR (6) Constipation Status: Acute Qualifiers: Constipation type: drug induced constipation Qualified Code(s): K59.03 - Drug induced constipation Plan: CONTINUE COLACE, CONTINUE TO MONITOR (7) Anxiety Status: Chronic Plan: CONTINUE XANAX, CONTINUE TO MONITOR (8) GERD (gastroesophageal reflux disease) Status: Chronic Qualifiers: Esophagitis presence: esophagitis presence not specified Qualified Code(s) : K21.9 - Gastro-esophageal reflux disease without esophagitis Plan: CONTINUE NEXIUM, CONTINUE TO MONITOR (9) Hypertension Status: Chronic Qualifiers: Hypertension type: essential hypertension Qualified Code(s): I10 - Essential (primary) hypertension Plan: LOSARTAN 50MG HS, CONTINUE METOPROLOL, CONTINUE TO MONITOR
[2017-01-11] MEDS ORDERED: STERILE WATER IRRIGATION IR ONE (13:54)
[2017-01-11] MEDS: COLACE CAP 100 MG PO SCH (21:36)
[2017-01-11] MEDS: COZAAR PO SCH (21:36)
[2017-01-11] MEDS: COUMADIN TAB 5 MG PO SCH (21:37)
[2017-01-11] MEDS: NS IV SCH (21:37)
[2017-01-11] MEDS: VANCOMYCIN HCL IV SCH (21:37)
[2017-01-11] MEDS: XALATAN EACHEYE SCH (21:38)
[2017-01-12 06:12] LABS: BASOPHILS # (AUTO) 0.1 X10^3/uL (0.0-0.1); BASOPHILS % (AUTO) 1.1 % (0.2-1.0); EOSINOPHILS # (AUTO) 0.1 x10^3/uL (0.0-0.2); HEMATOCRIT 29.6 % (36.0-47.0); LYMPHOCYTES # (AUTO) 2.2 X10^3/uL (1.3-2.9); MEAN CORPUSCULAR HEMOGLOBIN 32.7 pg (27.0-34.0); MEAN CORPUSCULAR HGB CONC 33.8 g/dL (33.0-35.0); MEAN CORPUSCULAR VOLUME 96.8 fL (80.0-100.0); MEAN PLATELET VOLUME 8.1 fL (7.4-11.0); MONOCYTES # (AUTO) 1.4 x10^3/uL (0.3-0.8); MONOCYTES % (AUTO) 14.9 % (0.0-13.0); NEUTROPHILS # (AUTO) 5.6 x10^3/uL (2.2-4.8); PLATELET COUNT 297 X10^3/uL (150.0-450.0); RED BLOOD COUNT 3.05 X10^6/uL (3.5-5.4); RED CELL DISTRIBUTION WIDTH 15.7 % (11.6-16.5); WHITE BLOOD COUNT 9.4 X10^3/uL (3.6-10.0)
[2017-01-12 06:17] LABS: ALANINE AMINOTRANSFERASE 18 Units/L (12-78); ALBUMIN 3.4 g/dL (3.4-5.0); ALKALINE PHOSPHATASE 84 Units/L (46-116); ASPARTATE AMINO TRANSFERASE 22 Units/L (15-37); BLOOD UREA NITROGEN 12 mg/dL (7-18); CALCIUM 9.6 mg/dL (8.5-10.1); CARBON DIOXIDE 26.2 mmol/L (21-32); CHLORIDE 104 mmol/L (98-107); CREATININE 0.75 mg/dL (0.55-1.02); SODIUM 141 mmol/L (136-145); TOTAL PROTEIN 7.1 g/dL (6.4-8.2); eGFR BLACK RACES > 60 (>60); eGFR NON BLACK RACES > 60 (>60)
[2017-01-12] MEDS ORDERED: NS 250 ML IV 250 ML IV ONE (08:14)
[2017-01-12] MEDS: ALPHAGAN 0.2% OPHTH SOLN EACHEYE SCH ×2 (09:00→22:08)
[2017-01-12] MEDS ORDERED: XYLOCAINE 2 % (PLAIN) ONE (09:24)
[2017-01-12] MEDS ORDERED: DIPRIVAN VIAL ONE (09:24)
[2017-01-12] MEDS ORDERED: VERSED ONE (09:24)
[2017-01-12] MEDS: LOPRESSOR TAB 25 MG PO SCH (09:32)
[2017-01-12] MEDS: ALBUMIN HUMAN 25%- 100ML 100 ML IV SCH (09:33)
[2017-01-12] MEDS: DEMEROL INJ IVP PRN (09:37)
[2017-01-12] MEDS: VANCOMYCIN HCL IV SCH (09:38)
[2017-01-12] MEDS: NS IV SCH (09:38)
[2017-01-12] MEDS ORDERED: TOPROL XL PO ONE (11:52)
[2017-01-12] MEDS: TOPROL XL PO SCH (12:00)
[2017-01-12] MEDS: PERCOCET TAB 5/325 MG PO SCH ×3 (13:28→21:23)
[2017-01-12] MEDS ORDERED: FENTANYL INJ 100 mcg ONE (13:30)
[2017-01-12] MEDS ORDERED: XYLOCAINE 1 % (PLAIN) ONE (13:33)
[2017-01-12] MEDS ORDERED: MARCAINE 0.25% INJ ONE (13:34)
[2017-01-12] MEDS ORDERED: XYLOCAINE 2% and EPINEPHRINE 1:100,000 ONE (13:34)
[2017-01-12] MEDS: NS 1000 ML 1,000 ML IV SCH ×4 (14:05→23:14)
[2017-01-12] MEDS ORDERED: NS IRRIGATION 1000 ML 1,000 ML IR ONE (14:20)
[2017-01-12] MEDS ORDERED: REGLAN INJ 10 MG VIAL IVP PRN (14:56)
[2017-01-12] MEDS ORDERED: ZOFRAN INJ 4 MG VIAL IVP PRN (14:56)
[2017-01-12] MEDS ORDERED: PHENERGAN INJ 25 MG IVP PRN (14:56)
[2017-01-12] MEDS ORDERED: BENADRYL INJ 50 MG VIAL IVP PRN (14:56)
[2017-01-12] MEDS: DEMEROL INJ ONE ×2 (15:08→15:20)
[2017-01-12] MEDS ORDERED: COLACE CAP 100 MG PO PRN (15:15)
[2017-01-12] MEDS ORDERED: MILK OF MAGNESIA PO PRN (15:15)
[2017-01-12] MEDS: ZANAFLEX PO SCH ×2 (15:28→21:24)
[2017-01-12] MEDS: ZANTAC PO SCH ×2 (15:29→21:24)
--- NOTE | 2017-01-12 15:34 | OR.GENERIC ---
Post-Op Note Generic - Post-Op Note Operative Report: Operative Report Date of Operation: January 12, 2017 Pre-Operative Diagnosis: Right lower extremity traumatic wounds. Post-Operative Diagnosis: Right lower extremity traumatic wounds (total area 20x15 cm). Procedure: Excisional debridement of right lower extremity traumatic wounds ( subcutaneous tissue) with placement of negative pressure wound dressing. Surgeon: Yfn Leblanc MD. Analysis Intern: Corky Vivas CRNA. Anesthesia: Monitored anesthesia care. Specimen: None. Estimated blood loss: Minimal Complications: None Summary: The patient is a 71 year old female who presented with right lower extremity traumatic wounds. The patient is on anticoagulation secondary to history of right lower extremity deep vein thrombosis. These had been debrided in the past and the patient was undergoing damp-to-dry dressing changes. Mild necrosis was noted in the wound beds along with poor granulation. The patient was offered excisional debridement and placement of negative pressure wound dressing. The risk and benefits of the procedure including difficulty with anesthesia, bleeding, infection, scar formation, and delayed healing were discussed with the patient. The patient understood these risks and requested the procedure. On January 12, 2017, the patient was brought to the operative theatre. A time out was performed verifying the patient and the procedure. After satisfactory induction of monitored anesthesia care, the right lower extremity was prepped with betadine and draped in the usual fashion. The necrotic eschar and subcutaneous tissue in the wound beds were debrided with a scalpel. The wound beds were scrubbed with a Hibiclens impregnated brush. Bleeding was controlled using electrocautery. A negative pressure wound dressing sponge was fashioned to fit the wounds. This totaled 20 x 15 cm. An occlusive dressing was placed. A robert was made in the dressing. A [employer] vacuum adapted was connected and placed to suction. This created a negative pressure wound dressing. This exhibited a good seal and no leak. The patient was awakened and taken to the recovery room in stable condition. There were no complications. All counts were correct.
[2017-01-12] MEDS: MIRALAX POWDER (1 DOSE 17GM) PO SCH (15:50)
[2017-01-12] MEDS: ZINC SULFATE PO SCH (15:51)
[2017-01-12] MEDS: TAB-A-VITE PO SCH (15:51)
[2017-01-12] MEDS: NexIUM PO SCH (15:52)
[2017-01-12] MEDS: NICOTINE PATCH TD SCH (15:52)
[2017-01-12] MEDS ORDERED: CATAPRES-TTS-1 TD SCH (16:00)
[2017-01-12] MEDS: VANCOMYCIN HCL 1 GM VIAL 1 GM in D5W 250 ML IV 250 ML IV SCH ×2 (21:23→23:02)
[2017-01-12] MEDS: XANAX PO PRN (21:24)
[2017-01-12] MEDS: COLACE CAP 100 MG PO SCH (21:24)
[2017-01-12] MEDS: COZAAR PO SCH (21:25)
[2017-01-12] MEDS: COUMADIN TAB 5 MG PO SCH (21:58)
[2017-01-12] MEDS: PHARMACY CONSULT - DOSE _____ XX SCH (22:07)
[2017-01-12] MEDS: XALATAN EACHEYE SCH (22:09)
[2017-01-12 22:44] LABS: CREATININE 0.64 mg/dL (0.55-1.02)
[2017-01-12 22:57] LABS: VANCOMYCIN,TROUGH 20.2 ug/mL (15-20)
[2017-01-13 06:05] LABS: BASOPHILS # (AUTO) 0.1 X10^3/uL (0.0-0.1); BASOPHILS % (AUTO) 1.1 % (0.2-1.0); EOSINOPHILS # (AUTO) 0.1 x10^3/uL (0.0-0.2); EOSINOPHILS % (AUTO) 1.1 % (0.9-2.9); HEMATOCRIT 27.2 % (36.0-47.0); HEMOGLOBIN 9.4 g/dL (12.0-16.0); LYMPHOCYTES # (AUTO) 2.2 X10^3/uL (1.3-2.9); LYMPHOCYTES % (AUTO) 21.6 % (21.0-51.0); MEAN CORPUSCULAR HGB CONC 34.7 g/dL (33.0-35.0); MEAN CORPUSCULAR VOLUME 95.2 fL (80.0-100.0); MEAN PLATELET VOLUME 8.3 fL (7.4-11.0); MONOCYTES # (AUTO) 1.5 x10^3/uL (0.3-0.8); MONOCYTES % (AUTO) 14.5 % (0.0-13.0); NEUTROPHILS # (AUTO) 6.2 x10^3/uL (2.2-4.8); NEUTROPHILS % (AUTO) 61.7 % (42.0-75.0); PLATELET COUNT 331 X10^3/uL (150.0-450.0); RED BLOOD COUNT 2.86 X10^6/uL (3.5-5.4); RED CELL DISTRIBUTION WIDTH 15.3 % (11.6-16.5)
[2017-01-13 06:24] LABS: ALANINE AMINOTRANSFERASE 15 Units/L (12-78); ALBUMIN 3.5 g/dL (3.4-5.0); ALKALINE PHOSPHATASE 84 Units/L (46-116); ASPARTATE AMINO TRANSFERASE 17 Units/L (15-37); BLOOD UREA NITROGEN 12 mg/dL (7-18); CALCIUM 9.5 mg/dL (8.5-10.1); CARBON DIOXIDE 26.7 mmol/L (21-32); CHLORIDE 104 mmol/L (98-107); CREATININE 0.61 mg/dL (0.55-1.02); SODIUM 142 mmol/L (136-145); eGFR BLACK RACES > 60 (>60); eGFR NON BLACK RACES > 60 (>60)
[2017-01-13 06:54] LABS: PLATELET MORPHOLOGY COMMENT NORMAL (NORMAL)
[2017-01-13] MEDS: DEMEROL INJ IVP PRN (07:12)
[2017-01-13] MEDS ORDERED: VANCOMYCIN HCL 500 MG VIAL 750 MG in D5W 250 ML IV 250 ML IV SCH (09:00)
[2017-01-13] MEDS ORDERED: TOPROL XL PO ONE (09:08)
[2017-01-13] MEDS: ALBUMIN HUMAN 25%- 100ML 100 ML IV SCH (09:19)
[2017-01-13] MEDS: MIRALAX POWDER (1 DOSE 17GM) PO SCH (09:20)
[2017-01-13] MEDS: NICOTINE PATCH TD SCH (09:21)
[2017-01-13] MEDS: ZANTAC PO SCH (09:25)
[2017-01-13] MEDS: ZINC SULFATE PO SCH (09:25)
[2017-01-13] MEDS: TAB-A-VITE PO SCH (09:25)
[2017-01-13] MEDS: ZANAFLEX PO SCH (09:26)
[2017-01-13] MEDS: PERCOCET TAB 5/325 MG PO SCH (09:26)
[2017-01-13] MEDS: NexIUM PO SCH (09:26)
[2017-01-13] MEDS: TOPROL XL PO SCH (09:26)
[2017-01-13] MEDS: ALPHAGAN 0.2% OPHTH SOLN EACHEYE SCH (09:57)
[2017-01-13] MEDS: NS 1000 ML 1,000 ML IV SCH (10:52)
[2017-01-13 12:49] VITALS: BP 176/74
--- NOTE | 2017-01-13 21:27 | PCM.PROG ---
Progress Note - Progress Note for Day of Date: 01/12/17 - Subjective Subjective: WAS ADMITTED FOR A WOUND/HEMATOMA TO THE RIGHT LOWER LEG. SHE IS STATUS POST DEBRIDEMENT OF WOUND TO THE RIGHT LEG YESTERDAY BY . TODAY, PATIENT IS ALERT AND ORIENTED, LYING IN BED ON MORNING ROUNDS. ON EXAMINATION, LUNGS ARE NOTED CLEAR TO AUSCULTATION. ABDOMEN IS ROUND, SOFT, AND NON-TENDER WITH NORMAL BOWEL SOUNDS NOTED IN ALL QUADRANTS. SUPERIOR WOUND TO RIGHT LOWER LEG CONTINUES WITH NECROSIS AND SLOUGHING . PLANS TO TAKE PATIENT BACK TO THE OR THIS MORNING FOR FURTHER DEBRIDEMENT. HER VITAL SIGNS THIS MORNING ARE 98.0-110-18-95%-177/87. ABNORMAL LAB VALUES INCLUDE THE FOLLOWING: RBC 2.94, HGB 9.9, HCT 28.3, INR 2.68, A/G RATIO 1.0. PATIENT AND FAMILY ARE IN AGREEMENT OF PLACEMENT AT A [facility] OR REHAB FACILITY FOR FURTHER PHYSICAL THERAPY AND WOUND CARE FOLLOWING DISCAHRGE. CASE MANAGEMENT IS RESEARCHING OPTIONS FOR PATIENT. OTHERWISE, WE WILL CONTINUE WITH CURRENT PLAN OF CARE TODAY. WE PLAN TO FOLLOW UP WITH AM LABS AND CONTINUE TO MONITOR PATIENT. - Past Medical Family Social History Past Med/Fam/Surg Hx: No changes since H&P Allergies: Allergies hydromorphone [From Dilaudid] Allergy (Verified 12/31/16 20:37) morphine Allergy (Verified 12/31/16 19:57) penicillin G Allergy (Verified 12/31/16 20:37) - Review of Systems ROS: No change since H&P - Vital Signs and I&O's Vital Signs: Temperature 98.2 F Pulse Rate [Right Brachial] 78 Pulse Rate [Left Brachial] 94 Pulse Rate 86 Respiratory Rate 18 Blood Pressure [Left Arm] 162/90 Blood Pressure [Right Arm] 176/74 Blood Pressure 190/84 O2 Sat by Pulse Oximetry 95 Intake and Output: Intake & Output 01/11/17 01/12/17 01/13/17 01/14/17 11:59 11:59 11:59 11:59 Intake Total 786 619 2823 Output Total 450 Balance 360 440 870 - Physical Exam Oriented: Normal Eyes: Normal Ear: Normal Nose: Normal Throat: Normal Respiratory: Normal Cardiovascular: Normal : Normal Auscultation: Bowel Sounds: Normal Palpation: Normal Tenderness: Normal Skin: Wound (Large hematoma right medial LE >6 cm. Mild erythema. TTP. Superior to hematoma extensive ecchymoses with sutures in place. (+) edema. poor capillary refill.), Bruising (LE's.), Ecchymosis (At laceration repair.) Musculoskeletal: Normal Psychiatric: Anxiety Mood Description: Calm Affect: Normal Speech Pattern: Clear, Appropriate - Laboratory and Diagnostics Result Diagrams: 01/13/17 05:35 01/13/17 05:35 Labs: 01/04/17 13:54 Leg - Right Gram Stain - Final 01/04/17 13:54 Leg - Right Wound Culture - Final Laboratory WBC 10.0 X10^3/uL (3.6-10.0) 01/13/17 05:35 RBC 2.86 X10^6/uL (3.5-5.4) L 01/13/17 05:35 Hgb 9.4 g/dL (12.0-16.0) L 01/13/17 05:35 Hct 27.2 % (36.0-47.0) L 01/13/17 05:35 MCV 95.2 fL (80.0-100.0) 01/13/17 05:35 MCH 33.0 pg (27.0-34.0) 01/13/17 05:35 MCHC 34.7 g/dL (33.0-35.0) 01/13/17 05:35 RDW 15.3 % (11.6-16.5) 01/13/17 05:35 Plt Count 331 X10^3/uL (150.0-450.0) 01/13/17 05:35 Plt Count Comment Adequate (ADEQUATE) 01/13/17 05:35 MPV 8.3 fL (7.4-11.0) 01/13/17 05:35 Neut % 61.7 % (42.0-75.0) 01/13/17 05:35 Lymph % 21.6 % (21.0-51.0) 01/13/17 05:35 [place] % 14.5 % (0.0-13.0) H 01/13/17 05:35 Eos % 1.1 % (0.9-2.9) 01/13/17 05:35 Baso % 1.1 % (0.2-1.0) H 01/13/17 05:35 Neut # 6.2 x10^3/uL (2.2-4.8) H 01/13/17 05:35 Lymph # 2.2 X10^3/uL (1.3-2.9) 01/13/17 05:35 [place] # 1.5 x10^3/uL (0.3-0.8) H 01/13/17 05:35 Eos # 0.1 x10^3/uL (0.0-0.2) 01/13/17 05:35 Baso # 0.1 X10^3/uL (0.0-0.1) 01/13/17 05:35 Absolute Nucleated RBC 0.0 /100WBC 01/13/17 05:35 Total Counted 100 01/10/17 07:05 Neutrophils % (Manual) 58 % (39-76) 01/10/17 07:05 Lymphocytes % (Manual) 26 % (13-43) 01/10/17 07:05 Monocytes % (Manual) 14 % (4-9) H 01/10/17 07:05 Eosinophils % (Manual) 2 % (0-6) 01/10/17 07:05 Plt Morphology Comment Normal (NORMAL) 01/13/17 05:35 RBC Morphology Normal (NORMAL) 01/13/17 05:35 INR Target Range - 01/13/17 05:35 INR 4.08 (0.8-1.3) H 01/13/17 05:35 Sample Site Lra 01/10/17 09:35 ABG pH 7.540 (7.35-7.45) H 01/10/17 09:35 ABG pCO2 31.0 mmHg (35.0-45.0) L 01/10/17 09:35 ABG pO2 82.0 mmHg (80.0-100.0) 01/10/17 09:35 ABG HCO3 26.5 mmol/L (22-26) H 01/10/17 09:35 ABG O2 Saturation 97.0 % (90-100) 01/10/17 09:35 ABG Base Excess 4.3 mmol/L (-2.0-2.0) H 01/10/17 09:35 Judd Test Pos 01/10/17 09:35 A-a Gradient 29.0 mmHg 01/10/17 09:35 FiO2 21.000 01/10/17 09:35 Blood Gas Comments [place] well cs 01/10/17 09:35 Sodium 142 mmol/L (136-145) 01/13/17 05:35 Corrected Sodium TNP 01/13/17 05:35 Potassium 3.3 mmol/L (3.5-5.1) L 01/13/17 05:35 Chloride 104 mmol/L (98-107) 01/13/17 05:35 Carbon Dioxide 26.7 mmol/L (21-32) 01/13/17 05:35 BUN 12 mg/dL (7-18) 01/13/17 05:35 Creatinine 0.61 mg/dL (0.55-1.02) 01/13/17 05:35 Est GFR (MDRD) Af Amer > 60 (>60) 01/13/17 05:35 Est GFR (MDRD) Non-Af > 60 (>60) 01/13/17 05:35 Glucose 77 mg/dL (65-99) 01/13/17 05:35 Calcium 9.5 mg/dL (8.5-10.1) 01/13/17 05:35 Corrected Calcium TNP 01/13/17 05:35 Magnesium 2.1 mg/dL (1.7-2.9) 01/11/17 04:50 Total Bilirubin 0.70 mg/dL (0.2-1.0) 01/13/17 05:35 AST 17 Units/L (15-37) 01/13/17 05:35 ALT 15 Units/L (12-78) 01/13/17 05:35 Alkaline Phosphatase 84 Units/L (46-116) 01/13/17 05:35 Total Protein 7.0 g/dL (6.4-8.2) 01/13/17 05:35 Albumin 3.5 g/dL (3.4-5.0) 01/13/17 05:35 Globulin 3.5 g/dL (2.5-4.5) 01/13/17 05:35 Albumin/Globulin Ratio 1.0 Ratio (1.1-2.1) L 01/13/17 05:35 Prealbumin 9.1 mg/dL (18-35.7) L 01/06/17 05:22 Specimen Type Clean catch urine 01/04/17 02:17 Urine Color Yellow (YELLOW) 01/04/17 02:17 Urine Appearance Clear (CLEAR) 01/04/17 02:17 Urine pH 8.0 (5.0 - 8.0) 01/04/17 02:17 Ur Specific [place] 1.010 (1.000-1.030) 01/04/17 02:17 Urine Protein Negative (NEGATIVE) 01/04/17 02:17 Urine Glucose (UA) Negative (NEGATIVE) 01/04/17 02:17 Urine Ketones Negative (NEGATIVE) 01/04/17 02:17 Urine Occult Blood Negative (NEGATIVE) 01/04/17 02:17 Urine Nitrite Negative (NEGATIVE) 01/04/17 02:17 Urine Bilirubin Negative (NEGATIVE) 01/04/17 02:17 Urine Urobilinogen Normal (NORMAL) 01/04/17 02:17 Ur Leukocyte Esterase Negative (NEGATIVE) 01/04/17 02:17 Urine RBC None seen /HPF (NEGATIVE) 01/04/17 02:17 Urine WBC None seen /HPF (NEGATIVE) 01/04/17 02:17 Ur Squamous Epith Cells Rare /HPF (NEGATIVE) 01/04/17 02:17 Urine Bacteria Negative /HPF (NEGATIVE) 01/04/17 02:17 Ur Culture Indicated? No/not indicated 01/04/17 02:17 Vancomycin Trough 20.2 ug/mL (15-20) H* 01/12/17 21:51 Random Vancomycin 14.4 ug/mL 01/09/17 08:55 - Plan (1) Cellulitis Status: Acute Qualifiers: Site of cellulitis: extremity Site of cellulitis of extremity: lower extremity Laterality: right Qualified Code(s): L03.115 - Cellulitis of right lower limb Plan: CONTINUE WOUND CARE, CONTINUE VANCOMYCIN 1GM DAILY, SURGICAL CONSULT, CONTINUE TO MONITOR (2) Laceration of right lower extremity Status: Acute Qualifiers: Encounter type: subsequent encounter Qualified Code(s): S81.811D - Laceration without foreign body, right lower leg, subsequent encounter Plan: CONTINUE WOUND CARE, CONTINUE VANCOMYCIN 1GM DAILY, STATUS POST DEBRIDEMENT, CONTINUE TO MONITOR (3) S/P debridement Status: Acute Plan: WOUND CARE, CONTINUE VANCOMYCIN, CONTINUE TO MONITOR (4) Hypomagnesemia Status: Acute Plan: REPLACE WITH MAGNESIUM PROTOCOL, CONTINUE TO MONITOR (5) Hypokalemia Status: Acute Plan: REPLACE WITH POTASSIUM PROTOCOL, CONTINUE TO MONITOR (6) Constipation Status: Acute Qualifiers: Constipation type: drug induced constipation Qualified Code(s): K59.03 - Drug induced constipation Plan: CONTINUE COLACE, CONTINUE TO MONITOR (7) Anxiety Status: Chronic Plan: CONTINUE XANAX, CONTINUE TO MONITOR (8) GERD (gastroesophageal reflux disease) Status: Chronic Qualifiers: Esophagitis presence: esophagitis presence not specified Qualified Code(s) : K21.9 - Gastro-esophageal reflux disease without esophagitis Plan: CONTINUE NEXIUM, CONTINUE TO MONITOR (9) Hypertension Status: Chronic Qualifiers: Hypertension type: essential hypertension Qualified Code(s): I10 - Essential (primary) hypertension Plan: LOSARTAN 50MG HS, CONTINUE METOPROLOL, CONTINUE TO MONITOR
== END 2017-01-13 12:10 | DRG 572 ==
LOC: MED/SURG 14:48
PROVIDERS: ADMIT Internal Medicine; ATTEND Internal Medicine
PROC: 3E0234Z Introduction of Serum, Toxoid and Vaccine into Muscle, Percutaneous Approach (ICD-10-PCS; 2017-01-04)
PROC: 3E0234Z Introduction of Serum, Toxoid and Vaccine into Muscle, Percutaneous Approach (ICD-10-PCS; 2017-01-04)
PROC: 0JBN0ZZ Excision of Right Lower Leg Subcutaneous Tissue and Fascia, Open Approach (ICD-10-PCS; principal; 2017-01-05 12:15)
PROC: 02HV33Z Insertion of Infusion Device into Superior Vena Cava, Percutaneous Approach (ICD-10-PCS; 2017-01-07)
PROC: B548ZZA Ultrasonography of Superior Vena Cava, Guidance (ICD-10-PCS; 2017-01-07)
PROC: 0JBN0ZZ Excision of Right Lower Leg Subcutaneous Tissue and Fascia, Open Approach (ICD-10-PCS; 2017-01-10)
DX: L03.115 Cellulitis of right lower limb (principal); S80.11XD Contusion of right lower leg, subsequent encounter; S81.811D Laceration without foreign body, right lower leg, subsequent encounter; Z79.01 Long term (current) use of anticoagulants; I10 Essential (primary) hypertension; X58.XXXD Exposure to other specified factors, subsequent encounter; Z86.718 Personal history of other venous thrombosis and embolism; Z72.0 Tobacco use; F41.8 Other specified anxiety disorders; K21.9 Gastro-esophageal reflux disease without esophagitis; Z95.828 Presence of other vascular implants and grafts; E87.6 Hypokalemia; K59.03 Drug induced constipation; E83.42 Hypomagnesemia; R26.89 Other abnormalities of gait and mobility; Z23 Encounter for immunization
CPT/HCPCS: 36415; 36600; 70450; 71010; 73590; 73610; 76000; 80053; 80202; 81001; 82565; 82803; 83735; 84134; 85025; 85610; 87070; 87205; 90686; 94760; 99231; A4216; A4217; A4222; P9047; S0020; 90670; J0360; J2001; J2175; J2250; J2550; J3010; J3370; J3490

== ENCOUNTER → 2017-02-02 | Outpatient (CLI) | payer OTHER ==
[2017-01-13 12:49] VITALS: BP 176/74
--- NOTE | 2017-02-03 08:45 | CT ---
History: Altered mental status Study: CT head without contrast. Sagittal and coronal reformations were provided. Comparison: January 10 Findings: There is no interval change. The ventricles sulci are normal in size and configuration for patient age without mass effect. There is no intracranial hemorrhage or mass or edema or subdural col lection of fluid. The calvarium is intact. The paranasal sinuses are clear. Impression: No acute intracranial disease Reported By:
== END ==
LOC: RAD 15:30
PROVIDERS: ATTEND Internal Medicine
DX: R41.82 Altered mental status, unspecified (principal)
CPT/HCPCS: 70450

== ENCOUNTER → 2017-02-04 | Day surgery (SDC) | payer OTHER ==
[2017-01-13 12:49] VITALS: BP 176/74
[~2017-02-04] MED LIST: XYLOCAINE 1 % (PLAIN) ONE
--- NOTE | 2017-02-04 22:14 | RAD ---
HISTORY: PICC line placement. Study: Portable chest. Comparison: Chest x-ray dated January 07, 2017. Findings: The trachea is midline. The cardiac silhouette is unremarkable. Interval removal of a left PICC delia e. There has been placement of a right PICC line whose tip overlies the proximal/mid right subclavian vein. Lung aeration appears unchanged. No obvious pneumothorax. The bony thorax is unremarkable. IMPRESSION: 1. Right PICC line that should be advanced approximately 7 cm. 2. No significant change in lung aeration. Reported By:
--- NOTE | 2017-02-04 22:57 | DR.CONSULT ---
Consult - Consultation for Day of: Date: 02/04/17 - Chief Complaint Chief Complaint: My arm hurts - Allergies Allergies/Adverse Reactions: Allergies Allergy/AdvReac Type Severity Reaction Status Date / Time hydromorphone [From Dilaudid] Allergy Verified 12/31/16 20:37 morphine Allergy Verified 12/31/16 19:57 penicillin G Allergy Verified 12/31/16 20:37 - History of Present Illness History of Present Illness: Pt with H/O dehydration wiht poor PO intake and poor venous access. requestd PICC Placement for IVF and ABX - Past Medical History Past Medical History: Anxiety, GERD, Hypertension Additional Medical History: h/o DVT - Past Surgical History Surgical History: Cholecystectomy, Hysterectomy, Ortho Surgery, Tonsillectomy, Other (IVC filter) - Family History Family Medical History: [place], Coronary Artery Disease, Hypertension - Review of Systems Constitutional: See HPI Eyes: See HPI ENT: See HPI Respiratory: See HPI Cardiovascular: See HPI Gastrointestinal: See HPI Genitourinary: See HPI Musculoskeletal: See HPI Skin: See HPI Neurological: See HPI - Physical Exam Vital Signs: Blood Pressure [Left Arm] 162/90 Blood Pressure [Right Arm] 176/74 Blood Pressure 176/74 Oriented: Not Oriented Eyes: Normal Ear: Normal Nose: Normal Throat: Normal Respiratory: Diminished Throughout Cardiovascular: Normal : Normal Auscultation: Bowel Sounds: Normal Palpation: Normal Tenderness: Diffuse Skin: Decreased Turgur, Tender, Wound, Bruising, Ecchymosis Psychiatric: Agitation Mood Description: Fearful, Sad, Anxious Affect: Anxious Speech Pattern: Unclear, Inappropriate, Delayed - Plan Plan: R PICC Procedures (ALL) - Central Line Placement PCM.CLCO: written consent Time out performed: Yes Patient placed pm monitor/pulse ox: Yes MD prep: mask, gown, gloves Centrial line prep: chlorhexidine scrub, sterile drapes applied Local anesthsia used: lidocane 1% Ultrasound used for placement: Yes Central line lumen ininserted: double (5fR POWER PICC tRIMED TO 45CM) Post procedure: good blood return, all ports aspirated, flushed,capped Post procedure xray: other (picc Initally left at 40cm...prior to xray pt became combative and pulled picc out to aprox 18-20cm. Xray reveals tip in dital subclavian..due to the difficulty of placement and pt's lack of IV access will leave as midline at this point) Patient tolerated procedure: No (see other note) Complications: catheter malposition (see note picc left as midline)
== END | disposition home or self-care (01) | DRG 941 ==
LOC: SURG1 19:23
PROVIDERS: ATTEND Internal Medicine
PROC: 02PY03Z Removal of Infusion Device from Great Vessel, Open Approach (ICD-10-PCS; principal; 2017-02-04)
PROC: 05H533Z Insertion of Infusion Device into Right Subclavian Vein, Percutaneous Approach (ICD-10-PCS; 2017-02-04)
PROC: B546ZZA Ultrasonography of Right Subclavian Vein, Guidance (ICD-10-PCS; 2017-02-04)
DX: Z45.2 Encounter for adjustment and management of vascular access device (principal)
CPT/HCPCS: 71010; J2001

== ENCOUNTER → 2017-05-03 | Outpatient (CLI) | payer OTHER ==
--- NOTE | 2017-05-03 16:51 | RAD ---
HISTORY: Neck pain Study: Three-view cervical spine Comparison: July 21, 2011 Findings: There is straightening of the cervical lordosis without acute fracture or subluxation. No prevertebr al soft tissue swelling can be identified. The odontoid appears intact. The lateral masses of C1 al ign with the body of C2. The patient has undergone previous anterior cervical disc fusion at C5-6. Th e fusion construct appears intact. There is moderate to severe discogenic degenerative disease above the fusion at C4-5 with otherwise mild discogenic degenerative disease and facet arthropathy noted. I ncidental vestigial cervical ribs are noted. There are carotid vascular calcifications. There is gene ralized osteopenia without a focal destructive lesion. Biapical pleural thickening is noted. IMPRESSION: Postsurgical changes at C5-6 with multilevel cervical spondylosis most severe at C4-5. See above rep ort. Reported By:
== END | disposition home or self-care (01) | DRG 552 ==
LOC: RAD 14:51
PROVIDERS: ATTEND Internal Medicine
DX: M54.2 Cervicalgia (principal); M47.892 Other spondylosis, cervical region
CPT/HCPCS: 72040